=== PATIENT | male | born 1950 | race Caucasian/White ===

== ENCOUNTER 2017-03-30 09:11 | Outpatient (RCR) | payer MEDICARE ==
[~2017-03-30 09:11] MED LIST: ACID REFLUX MED; B/P MEDICATION; CELE200C PO; CHOLESTEROL MED; METH-313 PO
[2017-03-30 10:06] LABS: BASOPHILS # (AUTO) 0.1 10^3/uL (0.0-0.1); BASOPHILS % (AUTO) 1 % (0-10); EOSINOPHILS # (AUTO) 0.7 10^3/uL (0.0-0.3); EOSINOPHILS % (AUTO) 6 % (0-10); LYMPHOCYTES # (AUTO) 3.4 X 10^3 (1.0-4.0); LYMPHOCYTES % (AUTO) 26 % (12-44); MEAN CORPUSCULAR HEMOGLOBIN 31 PG (25-34); MEAN CORPUSCULAR HGB CONC 33 G/DL (32-36); MEAN CORPUSCULAR VOLUME 93 FL (80-99); MEAN PLATELET VOLUME 12.6 FL (7.4-10.4); MONOCYTES # (AUTO) 1.7 X 10^3 (0.0-1.0); MONOCYTES % (AUTO) 12 % (0-12); NEUTROPHILS # (AUTO) 7.6 X 10^3 (1.8-7.8); NEUTROPHILS % (AUTO) 56 % (42-75); PLATELET COUNT 173 10^3/uL (130-400); RED BLOOD COUNT 4.85 10^6/uL (4.35-5.85); RED CELL DISTRIBUTION WIDTH 13.6 % (10.0-14.5); WHITE BLOOD COUNT 13.5 10^3/uL (4.3-11.0)
[2017-03-30 10:25] LABS: ALBUMIN 3.9 G/DL (3.2-4.5); BILIRUBIN,TOTAL 0.6 MG/DL (0.1-1.0); CALCIUM 9.3 MG/DL (8.5-10.1); CREATININE SERUM 2.87 MG/DL (0.60-1.30); POTASSIUM 5.4 MMOL/L (3.6-5.0); TOTAL PROTEIN 6.4 G/DL (6.4-8.2)
== END 2017-06-28 | disposition home or self-care (01) ==
LOC: ONC 09:11
PROVIDERS: ATTEND Internal Medicine Hematology & Oncology
DX: D72.829 Elevated white blood cell count, unspecified (principal); N18.9 Chronic kidney disease, unspecified; E66.9 Obesity, unspecified; E11.9 Type 2 diabetes mellitus without complications; F32.9 Major depressive disorder, single episode, unspecified; E78.5 Hyperlipidemia, unspecified; M10.9 Gout, unspecified
CPT/HCPCS: 36415; 80053; 81270; 85025; 99214

== ENCOUNTER 2017-12-10 08:26 | Emergency (ER) | payer MEDICARE | END 2017-12-10 08:37 | disposition left against medical advice (07) | LOC: EDUNIT# 08:26 → ER 08:29 | DX: R03.0 Elevated blood-pressure reading, without diagnosis of hypertension (principal) ==

== ENCOUNTER 2017-12-13 14:50 | Emergency (ER) | payer MEDICARE ==
[~2017-12-13] VITALS: Ht 177.8 cm; Wt 139.7 kg
--- OUTSIDE RECORDS SUMMARY | 2017-12-13 14:54 | XMS REPORT ---
Author Author JENNI ARZOLA [facility] Address [address] [place] [address] Care Team Providers Care Chemical Waste Management Technician Name Role Phone JENNI ARZOLA Unavailable PROBLEMS Type Condition ICD9-CM Code DUH90-AF Code Onset Dates Condition Status SNOMED Code Problem Edema R60.9 Active 161786640 Problem GERD (gastroesophageal reflux disease) K21.9 Active 140457877 Problem Hypercholesterolemia E78.0 Active 02317395 Assessment Snoring R06.83 Jun, Active 31639931 Problem History of vitamin D deficiency Z86.39 Active 107185830 Problem Chronic kidney disease, stage 3 (moderate) N18.3 Active 937027314 Problem Gout M10.9 Active 72294219 Problem Obesity E66.9 Active 583602313 Problem Kidney disease N28.9 Active 66371395 Problem HTN (hypertension) I10 Active 67762927 Problem Wheezing R06.2 Active 20129255 ALLERGIES Substance Reaction Event Type Date Status Benicar Hct makes him cough Drug Allergy Jun, Active Lisinopril 20 Mg Tablet makes him feel funny Non Drug Allergy Jun, Active SOCIAL HISTORY No smoking Hx information available PLAN OF CARE VITAL SIGNS Height 70 in 2016-07-01 Weight 308.6 lbs 2016-07-01 Heart Rate 80 bpm 2016-07-01 Respiratory Rate 18 2016-07-01 BMI 44.27 kg/m2 2016-07-01 Blood pressure systolic 174 mmHg 2016-07-01 Blood pressure diastolic 92 mmHg 2016-07-01 MEDICATIONS Medication Instructions Dosage Frequency Start Date End Date Duration Status Amlodipine Besylate 10 MG Orally Once a day 1 tablet 24h Active HydrALAZINE HCl 25 MG Orally Twice a day 1 tablet 12h Active Carvedilol 12.5 MG Orally 2 times a day 1 tablet 12h Active Accupril 20 mg Orally Once a day 1 tablet 24h Jun, Active Metoprolol Succinate ER 100 MG Orally 2 times a day 1 tablet 12h Active RESULTS No Results PROCEDURES Procedure Date Ordered Related Diagnosis Body Site [facility] VISIT ESTABLISHED PATIENT Jul 01, 2016 Office Visit, Est Pt., Level 3 Jul 01, 2016 IMMUNIZATIONS No Known Immunizations
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
[2017-12-13] MEDS ORDERED: AMLO10TA4 PO (15:48)
--- NOTE | 2017-12-13 15:48 | ED General ---
General Chief Complaint: General Problems/Pain Stated Complaint: LOWER BACK PAIN/RINGING IN L EAR Nursing Triage Note: Pt presents to ED with multiple complaints. L ear ringing, lower back pain that is due to a BP medication he was taking, right groin pain, and HTN. Nursing Sepsis Screen: No Definite Risk Source of Information: Patient Exam Limitations: No Limitations History of Present Illness Date Seen by Provider: Dec 13, 2017 Time Seen by Provider: 15:26 Initial Comments Patient presents with multiple seemingly unrelated complaints. He complains of left ear tinnitus and uncontrolled hypertension. He was previously on hydrochlorothiazide which she believed was causing several adverse reactions. He discontinued hydrochlorothiazide. He still takes metoprolol. He is a fairly poor historian about his medications but I believe these are the medications he is talking about from description. He also complains of slipping on the ice resulting in his legs spreading in a lateral direction. This resulted in a "right pulled groin muscle" and right lower back pain he would like assessed. The musculoskeletal symptoms seem to be improving. Allergies and Home Medications Allergies Coded Allergies: No Known Drug Allergies (Unverified , 11/27/13) Home Medications Amlodipine Besylate 10 Mg Tablet, 10 MG PO DAILY, #30 Prescribed by: GT MCLEAN on 12/13/17 1548 Celecoxib 200 Mg Capsule, 200 MG PO UD PRN for PAIN, #30 Ref 0 Prescribed by: ROXANN MCKENZIE on 09/22/16 1743 Methocarbamol 750 Mg Tablet, 1,500 MG PO UD PRN for muscle spasms, #40 Ref 0 Prescribed by: ROXANN MCKENZIE on 09/22/16 1743 [Acid Reflux Med] , (Reported) [B/P Medication] , (Reported) [Cholesterol Med] , (Reported) Constitutional: no symptoms reported EENTM: see HPI Respiratory: no symptoms reported Cardiovascular: see HPI Gastrointestinal: no symptoms reported Genitourinary: no symptoms reported Musculoskeletal: see HPI Skin: no symptoms reported Psychiatric/Neurological: See HPI Hematologic/Lymphatic: No Symptoms Reported Immunological/Allergic: no symptoms reported Past Vvgppvk-Srysai-Dlynqx Hx Patient Social History Alcohol Use: Denies Use Recreational Drug Use: No Smoking Status: Never a Smoker 2nd Hand Smoke Exposure: No Recent Foreign Travel: No Contact w/Someone Who Travel: No Recent Infectious Disease Expo: No Recent Hopitalizations: No Physical Abuse: No Sexual Abuse: No Mistreated: No Fear: No Immunizations Up To Date Tetanus Booster (TDap): Unknown Seasonal Allergies Seasonal Allergies: No Surgeries History of Surgeries: No Respiratory History of Respiratory Disorde: No Cardiovascular History of Cardiac Disorders: Yes Cardiac Disorders: Hypertension Neurological History of Neurological Disord: No Genitourinary History of Genitourinary Disor: No Gastrointestinal History of Gastrointestinal Di: Yes Gastrointestinal Disorders: Gastroesophageal Reflux Musculoskeletal History of Musculoskeletal Dis: No Endocrine History of Endocrine Disorders: Yes (obesity) HEENT History of HEENT Disorders: Yes HEENT Disorders: Tinnitis Cancer History of Cancer: No Psychosocial History of Psychiatric Problem: No Suicide Risk Score: 1 Integumentary History of Skin or Integumenta: No Blood Transfusions History of Blood Disorders: No Physical Exam Vital Signs Vital Sign - Last 12Hours 12/13/17 14:57 Temp 98.8 Pulse 70 Resp 18 B/P (MAP) 193/108 (136) Pulse Ox 97 O2 Delivery Room Air Capillary Refill : Less Than 3 Seconds General Appearance: No Apparent Distress, WD/WN, Obese HEENT: PERRL/EOMI, TMs Normal, Normal ENT Inspection Neck: Normal Inspection Respiratory: Lungs Clear, Normal Breath Sounds, No Accessory Muscle Use, No Respiratory Distress Cardiovascular: Regular Rate, Rhythm, No Edema, No Murmur Gastrointestinal: Normal Bowel Sounds, Non Tender, Soft, Distended (centrally obese) Genital/Rectal: Normal Genital Exam, Other (no evidence of inguinal hernia) Back: Normal Inspection, Other (slight tenderness over the left paraspinous muscles) Extremity: Normal Inspection, Non Tender Neurologic/Psychiatric: Alert, Oriented x3, No Motor/Sensory Deficits, Normal Mood/Affect, dock hand II-XII Norm as Tested Skin: Normal Color, Warm/Dry Progress/Results/Core Measures Suspected Sepsis Recent Fever Within 48 Hours: No Infection Criteria Present: None New/Unexplained Altered Menta: No Sepsis Screen: No Definite Risk Sepsis Diagnosis: SIRS Temperature:98.8 Pulse: 70 Respiratory Rate: 18 Blood Pressure 193 /108 Mean: 136 Results/Orders Vital Signs/I&O Capillary Refill : Less Than 3 Seconds Blood Pressure Mean: 136 Progress Note : Progress Note I suggested changing hydrochlorothiazide to Norvasc and following up in 1-2 weeks with his primary care provider for further evaluation of hypertension. We discussed lifestyle modifications to help with blood pressure control. See discharge instructions. Departure Impression Impression: Primary Impression: Hypertension Qualified Codes: I10 - Essential (primary) hypertension Additional Impressions: Tinnitus Qualified Codes: H93.12 - Tinnitus, left ear Lower back pain Qualified Codes: M54.5 - Low back pain Right groin pain Disposition: 01 HOME, SELF-CARE Condition: Stable Departure-Patient Inst. Decision time for Depature: 15:40 Referrals: NEELIMA BLEVINS DO (PCP/Family) Primary Care Physician Patient Instructions: High Blood Pressure (DC), Tinnitus (Ringing in the Ears) Add. Discharge Instructions: You may stop your hydrochlorothiazide (HCTZ). Start Norvasc (amlodipine) as prescribed. Follow-up with your primary care provider in1-2 weeks for a blood pressure check and medication review. You may take Aleve (naproxen) up to 500 mg twice daily for your back pain. Add Tylenol (acetaminophen) up to 1000 mg every 6 hours as needed for additional pain relief. Eat a low salt diet, exercise, and work on weight reduction to help with blood pressure. Return to care if symptoms worsen. Also return to care if ringing in your ears does not improve after changing blood pressure medications. All discharge instructions reviewed with patient and/or family. Voiced understanding. Scripts Amlodipine Besylate (Norvasc) 10 Mg Tablet 10 MG PO DAILY, #30 TAB Prov: GT TALAMANTES MD 12/13/17 Copy Copies To 1: NEELIMA BLEVINS JOSHUA T MD Dec 13, 2017 15:48
[2017-12-13 15:56] VITALS: BP 163/89
== END 2017-12-13 15:57 | disposition home or self-care (01) ==
LOC: EDUNIT# 14:50 → ER 14:51
DX: H93.12 Tinnitus, left ear (principal); M54.5 Low back pain; I10 Essential (primary) hypertension; R10.9 Unspecified abdominal pain; K21.9 Gastro-esophageal reflux disease without esophagitis
CPT/HCPCS: 99281

== ENCOUNTER → 2018-06-07 | Outpatient (CLI) | payer MEDICARE ==
[~2018-06-07] MED LIST changes: +AMLO10TA4 PO
--- NOTE | 2018-06-07 09:45 | Diagnostic Imaging Report ---
PROCEDURE: US Renal Bilateral. TECHNIQUE: Multiple real-time grayscale images were obtained over the kidneys in various projections bilaterally. INDICATION: Chronic kidney disease. FINDINGS: Right kidney measures 10.7 x 4.8 x 6.8 cm and the left kidney measures 10.8 x 5.5 x 4.8 cm. Cortical thickness and echogenicity is normal. There is an area of hypoechogenicity in the medial portion of the right kidney measuring 1.8 x 1.6 x 2.3 cm. No calculi or hydronephrosis is seen. The left kidney is unremarkable. Bladder is unremarkable. IMPRESSION: Questionable hypoechoic mass in the medial portion of the right kidney. CT with and without intravenous contrast would be useful for further evaluation to rule out a solid renal mass. No other abnormalities are seen. Dictated by: Dictated on workstation # [id number]
--- NOTE | 2018-06-07 09:45 | Diagnostic Imaging Report ---
INDICATION: Chronic kidney disease. FINDINGS: Imaging of the urinary bladder was performed. The prevoid bladder volume is 158 mL. The postvoid bladder volume is 12 mL. No bladder wall thickening or mass is detected. IMPRESSION: Small post void residual bladder volume. . Dictated by: Dictated on workstation # [id number]
== END ==
LOC: RAD 08:19
PROVIDERS: ATTEND Internal Medicine Nephrology
DX: I13.10 Hypertensive heart and chronic kidney disease without heart failure, with stage 1 through stage 4 chronic kidney disease, or unspecified chronic kidney disease (principal); N18.4 Chronic kidney disease, stage 4 (severe); E55.9 Vitamin D deficiency, unspecified; N25.81 Secondary hyperparathyroidism of renal origin; E78.5 Hyperlipidemia, unspecified; E87.5 Hyperkalemia; M10.9 Gout, unspecified; D72.829 Elevated white blood cell count, unspecified; N40.0 Benign prostatic hyperplasia without lower urinary tract symptoms
CPT/HCPCS: 76770; 76857

== ENCOUNTER → 2018-07-22 | Outpatient (CLI) | payer MEDICARE ==
[2018-07-22 07:06] LABS: MEAN PLATELET VOLUME 11.7 FL (7.4-10.4); RED BLOOD COUNT 4.54 10^6/uL (4.35-5.85); RED CELL DISTRIBUTION WIDTH 12.9 % (10.0-14.5); WHITE BLOOD COUNT 11.5 10^3/uL (4.3-11.0)
[2018-07-22 07:22] LABS: ALBUMIN 3.9 GM/DL (3.2-4.5); CALCIUM 9.5 MG/DL (8.5-10.1); CREATININE SERUM 3.33 MG/DL (0.60-1.30); PHOSPHORUS 3.6 MG/DL (2.3-4.7); POTASSIUM 4.6 MMOL/L (3.6-5.0); URIC ACID 8.9 MG/DL (2.6-7.2)
== END ==
LOC: LAB 06:38
PROVIDERS: ATTEND Internal Medicine Nephrology
DX: E87.2 Acidosis (principal); E55.9 Vitamin D deficiency, unspecified; N25.81 Secondary hyperparathyroidism of renal origin; E78.5 Hyperlipidemia, unspecified; E87.5 Hyperkalemia; I13.10 Hypertensive heart and chronic kidney disease without heart failure, with stage 1 through stage 4 chronic kidney disease, or unspecified chronic kidney disease; R73.01 Impaired fasting glucose; R80.9 Proteinuria, unspecified; N18.3 Chronic kidney disease, stage 3 (moderate); Z91.14 Patient's other noncompliance with medication regimen; M10.9 Gout, unspecified; D72.829 Elevated white blood cell count, unspecified; N18.4 Chronic kidney disease, stage 4 (severe); N40.0 Benign prostatic hyperplasia without lower urinary tract symptoms
CPT/HCPCS: 36415; 80069; 82570; 84156; 84550; 85027

== ENCOUNTER → 2018-08-20 | Outpatient (CLI) | payer MEDICARE ==
[2018-08-20 06:53] LABS: BILIRUBIN,URINE NEGATIVE (NEGATIVE); CLARITY,URINE SLIGHTLY CLOUDY; COLOR,URINE YELLOW; GLUCOSE, URINE (UA) 1+ (NEGATIVE); KETONES,URINE NEGATIVE (NEGATIVE); LEUKOCYTE ESTERASE ,URINE NEGATIVE (NEGATIVE); NITRITE,URINE NEGATIVE (NEGATIVE); PH,URINE 6 (5-9); PROTEIN,URINE 4+ (NEGATIVE); UROBILINOGEN,URINE NORMAL (NORMAL)
[2018-08-20 06:57] LABS: HEMOGLOBIN 13.7 G/DL (13.3-17.7); RED BLOOD COUNT 4.5 10^6/uL (4.35-5.85); RED CELL DISTRIBUTION WIDTH 13.1 % (10.0-14.5)
[2018-08-20 07:02] LABS: BACTERIA,URINE NEGATIVE /HPF; RBC,URINE RARE /HPF; WBC,URINE RARE /HPF
[2018-08-20 07:13] LABS: ALBUMIN 3.9 GM/DL (3.2-4.5); CALCIUM 9.1 MG/DL (8.5-10.1); CREATININE SERUM 3.64 MG/DL (0.60-1.30); PHOSPHORUS 3.9 MG/DL (2.3-4.7); POTASSIUM 4.9 MMOL/L (3.6-5.0); URIC ACID 9.7 MG/DL (2.6-7.2)
== END ==
LOC: LAB 06:33
PROVIDERS: ATTEND Internal Medicine Nephrology
DX: E87.2 Acidosis (principal); E55.9 Vitamin D deficiency, unspecified; N25.81 Secondary hyperparathyroidism of renal origin; E78.5 Hyperlipidemia, unspecified; E87.5 Hyperkalemia; I12.9 Hypertensive chronic kidney disease with stage 1 through stage 4 chronic kidney disease, or unspecified chronic kidney disease; N18.4 Chronic kidney disease, stage 4 (severe); M10.9 Gout, unspecified; E79.0 Hyperuricemia without signs of inflammatory arthritis and tophaceous disease; R80.8 Other proteinuria; N40.0 Benign prostatic hyperplasia without lower urinary tract symptoms; Z91.14 Patient's other noncompliance with medication regimen
CPT/HCPCS: 36415; 80069; 81000; 82570; 84156; 84550; 85027

== ENCOUNTER → 2018-11-08 | Outpatient (CLI) | payer MEDICARE ==
[2018-11-08 13:24] LABS: HEMOGLOBIN 15.1 G/DL (13.3-17.7); MEAN PLATELET VOLUME 11.4 FL (7.4-10.4); RED BLOOD COUNT 4.92 10^6/uL (4.35-5.85); RED CELL DISTRIBUTION WIDTH 13.3 % (10.0-14.5); WHITE BLOOD COUNT 13.1 10^3/uL (4.3-11.0)
[2018-11-08 13:39] LABS: BACTERIA,URINE NEGATIVE /HPF; BILIRUBIN,URINE NEGATIVE (NEGATIVE); CLARITY,URINE CLEAR; COLOR,URINE YELLOW; GLUCOSE, URINE (UA) 1+ (NEGATIVE); GRANULAR CASTS,URINE RARE /LPF; HYALINE CASTS, URINE 0-2 /LPF; KETONES,URINE NEGATIVE (NEGATIVE); LEUKOCYTE ESTERASE ,URINE NEGATIVE (NEGATIVE); NITRITE,URINE NEGATIVE (NEGATIVE); PH,URINE 6 (5-9); PROTEIN,URINE 4+ (NEGATIVE); SQUAMOUS EPITHELIAL CELL,UR 0-2 /HPF; UROBILINOGEN,URINE NORMAL (NORMAL)
[2018-11-08 13:46] LABS: CALCIUM 9.4 MG/DL (8.5-10.1); CREATININE SERUM 3.16 MG/DL (0.60-1.30); PHOSPHORUS 3.1 MG/DL (2.3-4.7); POTASSIUM 4.4 MMOL/L (3.6-5.0); URIC ACID 8.4 MG/DL (2.6-7.2)
== END ==
LOC: LAB 12:44
PROVIDERS: ATTEND Internal Medicine Nephrology
DX: E55.9 Vitamin D deficiency, unspecified (principal); I12.9 Hypertensive chronic kidney disease with stage 1 through stage 4 chronic kidney disease, or unspecified chronic kidney disease; N18.4 Chronic kidney disease, stage 4 (severe); E87.5 Hyperkalemia; N25.81 Secondary hyperparathyroidism of renal origin; E78.5 Hyperlipidemia, unspecified; E87.2 Acidosis; Z91.14 Patient's other noncompliance with medication regimen; E79.0 Hyperuricemia without signs of inflammatory arthritis and tophaceous disease; D72.829 Elevated white blood cell count, unspecified; R80.8 Other proteinuria; N40.0 Benign prostatic hyperplasia without lower urinary tract symptoms
CPT/HCPCS: 36415; 80069; 81000; 82306; 82570; 83970; 84156; 84550; 85027

== ENCOUNTER → 2019-05-28 | Outpatient (CLI) | payer MEDICARE ==
[2019-05-28 10:09] LABS: HEMOGLOBIN 14.7 G/DL (13.3-17.7); MEAN PLATELET VOLUME 11.8 FL (7.4-10.4); RED CELL DISTRIBUTION WIDTH 13.3 % (10.0-14.5); WHITE BLOOD COUNT 11.5 10^3/uL (4.3-11.0)
[2019-05-28 10:27] LABS: BILIRUBIN,URINE NEGATIVE (NEGATIVE); CLARITY,URINE CLEAR; COLOR,URINE YELLOW; GLUCOSE, URINE (UA) 2+ (NEGATIVE); KETONES,URINE NEGATIVE (NEGATIVE); LEUKOCYTE ESTERASE ,URINE NEGATIVE (NEGATIVE); NITRITE,URINE NEGATIVE (NEGATIVE); PH,URINE 6 (5-9); PROTEIN,URINE 4+ (NEGATIVE); UROBILINOGEN,URINE NORMAL (NORMAL)
[2019-05-28 10:35] LABS: CALCIUM 9.6 MG/DL (8.5-10.1); CREATININE SERUM 4.39 MG/DL (0.60-1.30); PHOSPHORUS 3.9 MG/DL (2.3-4.7); POTASSIUM 4.7 MMOL/L (3.6-5.0)
[2019-05-28 10:56] LABS: BACTERIA,URINE TRACE /HPF; WBC,URINE RARE /HPF
== END ==
LOC: LAB 09:45
PROVIDERS: ATTEND Internal Medicine Nephrology
DX: E87.2 Acidosis (principal); E55.9 Vitamin D deficiency, unspecified; N25.81 Secondary hyperparathyroidism of renal origin; E78.5 Hyperlipidemia, unspecified; E87.5 Hyperkalemia; I12.9 Hypertensive chronic kidney disease with stage 1 through stage 4 chronic kidney disease, or unspecified chronic kidney disease; N18.4 Chronic kidney disease, stage 4 (severe); M10.9 Gout, unspecified; E79.0 Hyperuricemia without signs of inflammatory arthritis and tophaceous disease; D72.829 Elevated white blood cell count, unspecified; N40.0 Benign prostatic hyperplasia without lower urinary tract symptoms; Z91.14 Patient's other noncompliance with medication regimen
CPT/HCPCS: 36415; 80069; 81000; 82306; 82570; 83970; 84156; 85027

== ENCOUNTER → 2019-06-03 | Outpatient (CLI) | payer MEDICARE ==
[2019-06-03 07:43] LABS: ALBUMIN 3.9 GM/DL (3.2-4.5); CALCIUM 9.3 MG/DL (8.5-10.1); CREATININE SERUM 4.7 MG/DL (0.60-1.30); POTASSIUM 4.6 MMOL/L (3.6-5.0)
== END ==
LOC: LAB 06:51
PROVIDERS: ATTEND Internal Medicine Nephrology
DX: E87.2 Acidosis (principal); E55.9 Vitamin D deficiency, unspecified; N25.81 Secondary hyperparathyroidism of renal origin; E78.5 Hyperlipidemia, unspecified; E87.5 Hyperkalemia; I12.9 Hypertensive chronic kidney disease with stage 1 through stage 4 chronic kidney disease, or unspecified chronic kidney disease; E79.0 Hyperuricemia without signs of inflammatory arthritis and tophaceous disease; D72.829 Elevated white blood cell count, unspecified; N18.4 Chronic kidney disease, stage 4 (severe); N40.0 Benign prostatic hyperplasia without lower urinary tract symptoms; Z91.14 Patient's other noncompliance with medication regimen
CPT/HCPCS: 36415; 80069

== ENCOUNTER → 2020-01-22 | Outpatient (CLI) | payer MEDICARE ==
[2020-01-22 11:14] LABS: HEMOGLOBIN 13.2 G/DL (13.3-17.7); MEAN PLATELET VOLUME 12.3 FL (7.4-10.4); RED CELL DISTRIBUTION WIDTH 14.9 % (10.0-14.5); WHITE BLOOD COUNT 12.2 10^3/uL (4.3-11.0)
[2020-01-22 11:17] LABS: BILIRUBIN,URINE NEGATIVE (NEGATIVE); CLARITY,URINE CLEAR; COLOR,URINE YELLOW; GLUCOSE, URINE (UA) TRACE (NEGATIVE); KETONES,URINE NEGATIVE (NEGATIVE); LEUKOCYTE ESTERASE ,URINE NEGATIVE (NEGATIVE); NITRITE,URINE NEGATIVE (NEGATIVE); PH,URINE 5.5 (5-9); PROTEIN,URINE 3+ (NEGATIVE)
[2020-01-22 11:36] LABS: BACTERIA,URINE NEGATIVE /HPF; SQUAMOUS EPITHELIAL CELL,UR RARE /HPF; WBC,URINE RARE /HPF
[2020-01-22 11:49] LABS: ALBUMIN 4.2 GM/DL (3.2-4.5); CALCIUM 8.8 MG/DL (8.5-10.1); CREATININE SERUM 5.11 MG/DL (0.60-1.30); PHOSPHORUS 5.5 MG/DL (2.3-4.7); POTASSIUM 5.3 MMOL/L (3.6-5.0); URIC ACID 8.1 MG/DL (2.6-7.2)
== END ==
LOC: LAB 10:44
PROVIDERS: ATTEND Internal Medicine Nephrology
DX: I12.9 Hypertensive chronic kidney disease with stage 1 through stage 4 chronic kidney disease, or unspecified chronic kidney disease (principal); E87.2 Acidosis; E55.9 Vitamin D deficiency, unspecified; N25.81 Secondary hyperparathyroidism of renal origin; E78.5 Hyperlipidemia, unspecified; E87.5 Hyperkalemia; M10.9 Gout, unspecified; D72.829 Elevated white blood cell count, unspecified; N18.4 Chronic kidney disease, stage 4 (severe); N40.0 Benign prostatic hyperplasia without lower urinary tract symptoms; Z91.14 Patient's other noncompliance with medication regimen
CPT/HCPCS: 36415; 80069; 81000; 82306; 82330; 82570; 83970; 84156; 84550; 85027

== ENCOUNTER → 2020-03-19 | Outpatient (CLI) | payer MEDICARE ==
[2020-03-19 06:44] LABS: BASOPHILS # (AUTO) 0.1 10^3/uL (0.0-0.1); BASOPHILS % (AUTO) 0 % (0-10); EOSINOPHILS # (AUTO) 0.8 10^3/uL (0.0-0.3); EOSINOPHILS % (AUTO) 7 % (0-10); HEMATOCRIT 40 % (40-54); HEMOGLOBIN 12.9 G/DL (13.3-17.7); LYMPHOCYTES # (AUTO) 3.1 X 10^3 (1.0-4.0); LYMPHOCYTES % (AUTO) 28 % (12-44); MEAN CORPUSCULAR HEMOGLOBIN 30 PG (25-34); MEAN CORPUSCULAR HGB CONC 32 G/DL (32-36); MEAN CORPUSCULAR VOLUME 92 FL (80-99); MEAN PLATELET VOLUME 12.1 FL (7.4-10.4); MONOCYTES # (AUTO) 1.1 X 10^3 (0.0-1.0); MONOCYTES % (AUTO) 10 % (0-12); NEUTROPHILS # (AUTO) 6.1 X 10^3 (1.8-7.8); NEUTROPHILS % (AUTO) 55 % (42-75); PLATELET COUNT 174 10^3/uL (130-400); RED CELL DISTRIBUTION WIDTH 14.4 % (10.0-14.5); WHITE BLOOD COUNT 11.1 10^3/uL (4.3-11.0)
[2020-03-19 06:47] LABS: BILIRUBIN,URINE NEGATIVE (NEGATIVE); CLARITY,URINE CLEAR; COLOR,URINE YELLOW; GLUCOSE, URINE (UA) TRACE (NEGATIVE); KETONES,URINE NEGATIVE (NEGATIVE); LEUKOCYTE ESTERASE ,URINE NEGATIVE (NEGATIVE); NITRITE,URINE NEGATIVE (NEGATIVE); PROTEIN,URINE 3+ (NEGATIVE)
[2020-03-19 06:58] LABS: BACTERIA,URINE TRACE /HPF; HYALINE CASTS, URINE RARE /LPF; SQUAMOUS EPITHELIAL CELL,UR RARE /HPF
[2020-03-19 06:59] LABS: ALBUMIN 4.1 GM/DL (3.2-4.5); CALCIUM 8.8 MG/DL (8.5-10.1); CREATININE SERUM 5.47 MG/DL (0.60-1.30); PHOSPHORUS 4.7 MG/DL (2.3-4.7); POTASSIUM 4.9 MMOL/L (3.6-5.0)
== END ==
LOC: LAB 06:14
PROVIDERS: ATTEND Internal Medicine Nephrology
DX: E55.9 Vitamin D deficiency, unspecified (principal); E87.2 Acidosis; N25.81 Secondary hyperparathyroidism of renal origin; E78.5 Hyperlipidemia, unspecified; E87.5 Hyperkalemia; I13.2 Hypertensive heart and chronic kidney disease with heart failure and with stage 5 chronic kidney disease, or end stage renal disease; N18.5 Chronic kidney disease, stage 5; M10.9 Gout, unspecified; D72.829 Elevated white blood cell count, unspecified; R80.8 Other proteinuria; N40.0 Benign prostatic hyperplasia without lower urinary tract symptoms; Z91.14 Patient's other noncompliance with medication regimen
CPT/HCPCS: 36415; 80069; 81000; 82306; 82570; 83970; 84156; 85025; 87088

== ENCOUNTER 2020-04-09 14:22 | Emergency (ER) | payer OTHER, MEDICARE ==
[~2020-04-09] VITALS: Ht 177.8 cm; Wt 118.8 kg
[2020-04-09] MEDS ORDERED: meTOproloL SUCCINATE 50 MG (TOPROL XL) TAB PO SCH (14:45)
[2020-04-09 14:50] LABS: BASOPHILS # (AUTO) 0.1 10^3/uL (0.0-0.1); BASOPHILS % (AUTO) 0 % (0-10); EOSINOPHILS # (AUTO) 0.7 10^3/uL (0.0-0.3); EOSINOPHILS % (AUTO) 6 % (0-10); HEMATOCRIT 39 % (40-54); HEMOGLOBIN 12.6 G/DL (13.3-17.7); LYMPHOCYTES # (AUTO) 3.4 X 10^3 (1.0-4.0); LYMPHOCYTES % (AUTO) 29 % (12-44); MEAN CORPUSCULAR HEMOGLOBIN 30 PG (25-34); MEAN CORPUSCULAR HGB CONC 33 G/DL (32-36); MEAN CORPUSCULAR VOLUME 92 FL (80-99); MEAN PLATELET VOLUME 12.2 FL (7.4-10.4); MONOCYTES # (AUTO) 1.2 X 10^3 (0.0-1.0); MONOCYTES % (AUTO) 11 % (0-12); NEUTROPHILS # (AUTO) 6.1 X 10^3 (1.8-7.8); NEUTROPHILS % (AUTO) 53 % (42-75); PLATELET COUNT 166 10^3/uL (130-400); RED CELL DISTRIBUTION WIDTH 14.1 % (10.0-14.5); WHITE BLOOD COUNT 11.5 10^3/uL (4.3-11.0)
[2020-04-09 15:06] LABS: PROTHROMBIN TIME PATIENT 13.6 SEC (12.2-14.7)
[2020-04-09 15:08] LABS: CALCIUM 8.9 MG/DL (8.5-10.1)
[2020-04-09 15:09] LABS: TOTAL PROTEIN 6.7 GM/DL (6.4-8.2)
[2020-04-09 15:11] LABS: BILIRUBIN,TOTAL 0.4 MG/DL (0.1-1.0)
[2020-04-09 15:13] LABS: CREATININE SERUM 6.01 MG/DL (0.60-1.30)
[2020-04-09 15:15] LABS: MAGNESIUM 2.3 MG/DL (1.6-2.4)
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
[2020-04-09] MEDS ORDERED: hydrALAZINE (APESOLINE) 20 MG/ML VIAL IV ONE (16:15)
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
[2020-04-09 17:39] VITALS: BP 155/80
--- OUTSIDE RECORDS SUMMARY | 2020-04-09 18:35 | XMS REPORT ---
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 81 Active 93836264 Problem Other hyperlipidemia E78.4 Active 58195781 Problem Anxiety F41.9 Active 28868269 Problem Chronic kidney disease, stage 3 (moderate) N18.3 Active 678926363 Problem Kidney disease N28.9 Active 17292 001 Problem GERD (gastroesophageal reflux disease) K21.9 Active 418822487 Problem Hypercholesterolemia E78.0 Active 33683545 Problem History of vitamin D deficiency Z86.39 Active 503220583 Problem Obesity E66.9 Active 460405502 Problem Edema R60.9 Active 989551461 Problem HTN (hypertension) I10 Active 3 [id number] ALLERGIES No Information ENCOUNTERS Encounter Location Date Diagnosis [facility] [address] [facility] [id number] [address] [place] [phone] March, [facility] [address] [facility] [id number] [address] [place] [id number] Feb, Chronic kidney disease, stag e IV (severe) N18.4 [facility] [address] [facility] [id number] [address] [place] [id number] Feb, [facility] [address] [place] [id number] [address] [place] [phone] Jan, Chronic kidney disease, stag e IV (severe) N18.4 [facility] [address] [facility] [id number] [address] [place] [phone] Jan, Chronic kidney disease, stag e IV (severe) N18.4 [facility] [address] [place] [id number] [place] [address] Jan, HTN (hypertension) I10 and C hronic kidney disease, stage 3 (moderate) N18.3 [place] [address] [place] [id number] [place] [address] Dec, [facility] [address] [place] [id number] [place] [address] Aug, [facility] [address] [address] Aug, [facility] [address] [address] Aug, Gout involving toe of left f oot, unspecified cause, unspecified chronicity M10.9 [facility] [address] [place] [id number] [address] [place] [phone] Jul, Chronic kidney disease, stag e 3 (moderate) N18.3 [facility] [address] [place] [id number] [address] [place] [address] Jul, Chronic kidney disease, stag e 3 (moderate) N18.3 [place] [id number] [place] [id number] [address] [place] [address] Jun, Hypercholesterolemia E78.0 [place] [address] [place] [id number] [place] [address] Jun, Hypercholesterolemia E78.0 [facility] [address] [address] May, [facility] [address] [facility] [id number] [address] [place] [phone] Apr, Acute seasonal allergic rhin itis, unspecified trigger J30.2 [facility] [address] [facility] [id number] [address] [place] [address] Apr, [facility] [address] [facility] [id number] [address] [place] [phone] March, HTN (hypertension) I10 [place] [address] [facility] [id number] [address] [place] [phone] March, Pain in right shoulder M25.5 [address] [place] [address] [facility] [id number] [address] [place] [phone] March, Hypercholesterolemia E78.0 [facility] [address] [facility] [id number] [address] [place] [phone] Feb, Chronic kidney disease, stag e III (moderate) N18.3 [facility] [address] [facility] [id number] [address] [place] [address] Jan, Acute pain of right shoulder M25.511 and Muscle strain of right shoulder, initial encounter S46.911A [facility] [address] [place] [id number] [address] [place] [address] Jan, Anxiety F41.9 [place] [address] [place] [id number] [place] [address] Nov, Anxiety F41.9 and Chronic ki dney disease, stage 3 (moderate) N18.3 [place] [id number] [facility] [id number] [address] [place] [address] Oct, Chronic kidney disease, stag e 3 (moderate) N18.3 ; Gout M10.9 ; Acidosis E87.2 ; Other hyperlipidemia E78.4 ; 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 ; HTN (hypertension) I10 ; Patient's other noncompliance with medication regimen Z91.14 ; Hyperkalemia E87.5 ; Secondary hyperparathyroidism of renal origin N25.81 ; Persistent proteinuria R80.1 and Vitamin D deficiency E55.9 [place] [address] [address] Oct, Acidosis E87.2 ; Vitamin D d eficiency E55.9 ; Secondary hyperparathyroidism of renal origin N25.81 ; Other hyperlipidemia E78.4 ; Hyperkalemia E87.5 ; 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 ; Impaired fasting glucose R73.01 ; Persistent proteinuria R80.1 ; Chronic kidney disease, stage III (moderate) N18.3 ; Patient's other noncompliance with medication regimen Z91.14 and Gout, unspecified cause, unspecified chronicity, unspecified site M10.9 [place] [address] [address] Oct, [place] [address] [address] Oct, Chronic kidney disease, stag e 3 (moderate) N18.3 ; HTN (hypertension) I10 ; Persistent proteinuria R80.1 and Vitamin D deficiency E55.9 [place] [address] [address] Jul, Snoring R06.83 ; Obesity E66 .9 ; HTN (hypertension) I10 and Kidney disease N28.9 [facility] [address] [address] Jul, [facility] [address] [address] Jun, Snoring R06.83 and HTN (hype rtension) I10 [place] [address] [address] Jun, Chronic kidney disease, stag e 3 (moderate) N18.3 [place] [address] [address] Jun, Chronic kidney disease, stag e 3 (moderate) N18.3 [place] [address] [address] Jan, [place] [address] [address] Jan, Kidney disease N28.9 and Hyp ercholesterolemia E78.[address] [address] Jan, HTN (hypertension) I10 ; Gou t M10.9 and Kidney disease N28.[address] [address] Jan, Gout M10.9 and HTN (hyperten malgorzata) I10 [address] [address] Nov, Gout M10.9 ; HTN (hypertensi on) I10 and Obesity E66.9 [facility] [address] [address] Oct, Acute gout of right foot, un specified cause M10.[address] [address] Sep, [address] [address] Sep, Hyperpotassemia 276.7 ; Hype rtensive heart and chronic kidney disease, benign, without heart failure and with chronic kidney disease stage I through stage IV, or unspecified 404.10 ; Dyslipidemia 272.4 ; Vitamin D deficiency 268.9 ; Chronic kidney disease, stage 3 585.3 ; Elevated fasting blood sugar 790.21 ; Secondary hyperparathyroidism (of renal origin) 588.81 ; Proteinuria 791.0 and Acidosis 276.[address] [address] May, [place] [address] [place] [address] May, Hyperpotassemia 276.7 ; Hype rtensive heart and chronic kidney disease, benign, without heart failure and with chronic kidney disease stage I through stage IV, or unspecified 404.10 ; Dyslipidemia 272.4 ; Vitamin D deficiency 268.9 and Chronic kidney disease, stage 3 585.3 [facility] [address] [facility] [id number] [address] [place] [id number] Apr, Dental examination V72.2 [facility] [address] [place] [id number] [address] [place] [phone] March, Acidosis 276.2 ; Vitamin D d eficiency 268.9 ; Secondary hyperparathyroidism (of renal origin) 588.81 ; Dyslipidemia 272.4 ; Hyperpotassemia 276.7 ; Hypertensive heart and chronic kidney disease, benign, without heart failure and with chronic kidney disease stage I through stage IV, or unspecified 404.10 ; Elevated fasting blood sugar 790.21 ; Proteinuria 791.0 and Chronic kidney disease, stage 3 585.3 [facility] [address] [address] Feb, [facility] [address] [address] Feb, [facility] [address] [place] [id number] [address] [place] [phone] Jan, [facility] [address] [place] [id number] [address] [place] [address] Jan, [facility] [id number] [place] [address] Jan, [facility] [address] [address] Jan, [facility] [address] [place] [id number] [address] [place] [phone] Jan, [facility] [address] [place] [id number] [address] [place] [phone] Jan, [facility] [address] [id number] [address] [place] [address], [place] [address] Dec, 2014 [facility] [address] [id number] [address] [place] [address], [place] [address] Dec, 2014 [facility] [address] [id number] [address] [place] [address], [place] [address] Dec, 2014 [facility] [address] [id number] [address] [place] [address], [place] [address] Dec, 2014 [facility] [address] [id number] [address] [place] [address], [place] [address] Dec, 2014 [facility] [address] [id number] [address] [place] [address], [place] [address] Dec, 2014 [facility] [address] [id number] [address] [place] [address], [place] [address] Dec, [facility] [address] [id number] [address] [place] [address], [place] [address] Dec, [facility] [address] [id number] [address] [place] [address], [place] [address] Nov, [facility] [address] [id number] [address] [place] [address], [place] [address] Nov, [facility] [address] [id number] [address] [place] [address], [place] [address] Oct, [facility] [address] [id number] [address] [place] [address], [place] [address] Oct, [facility] [address] [id number] [address] [place] [address], [place] [address] Oct, [facility] [address] [id number] [address] [place] [address], [place] [address] Oct, [facility] [address] [id number] [address] [place] [address], [place] [address] Oct, [facility] [address] [id number] [facility] [place] [address] Jun, [facility] [address] [id number] [facility] [place] [address] Jun, [facility] [address] [id number] [facility] [place] [address] Jun, [facility] [address] [id number] [address] [place] [address], [place] [address] Jun, [facility] [address] [id number] [address] [place] [address], [place] [address] Apr, [facility] [address] [id number] [address] [place] [address], [place] [address] Apr, [facility] [address] [id number] [address] [place] [address], [place] [address] Apr, [facility] [address] [id number] [address] [place] [address], [place] [address] Apr, [facility] [address] [id number] [address] [place] [address], [place] [address] Apr, [facility] [address] [id number] [address] [place] [address], [place] [address] Apr, [facility] [address] [id number] [address] [place] [address], [place] [address] March, [facility] [address] [id number] [address] [place] [address], [place] [address] March, [facility] [address] [id number] [address] [place] [address], [place] [address] March, [facility] [address] [id number] [address] [place] [address], [place] [address] Jan, [facility] [address] [id number] [address] [place] [address], [place] [address] Jan, [facility] [address] [id number] [address] [place] [address], [place] [address] Jan, [facility] [address] [id number] [address] [place] [address], [place] [address] Jan, [facility] [address] [id number] [address] [place] [address], [place] [address] Dec, [facility] [address] [id number] [address] [place] [address], [place] [address] Dec, [facility] [address] [id number] [address] [place] [address], [place] [address] Dec, [facility] [address] [id number] [address] [place] [address], [place] [address] Dec, [facility] [address] [id number] [address] [place] [address], [place] [address] Oct, [facility] [address] [id number] [address] [place] [address] Oct, [facility] [address] [id number] [address] [place] [address] Sep, [facility] [address] [id number] [address] [place] [address] Sep, [facility] [address] [id number] [address] [place] [address] Sep, [facility] [address] [id number] [address] [place] [address] Sep, [facility] [address] [id number] [address] [place] [id number] Aug, 2013 [facility] [address] [id number] [address] [place] [id number] 14 Aug, 2013 [facility] [address] [id number] [address] [place] [address] 14 Aug, 2013 [facility] [address] [id number] [address] [place] [id number] 13 Aug, 2013 [facility] [address] [id number] [address] [place] [address], [place] [address] Aug, [facility] [address] [id number] [address] [place] [address], [place] [address] Aug, [facility] [address] [id number] [address] [place] [address], [place] [address] Aug, [facility] [address] [id number] [address] [place] [address], [place] [address] Aug, [facility] [address] [id number] [address] [place] [address], [place] [address] Jul, [facility] [address] [id number] [address] [place] [address], [place] [address] Jun, [facility] [address] [id number] [address] [place] [address], [place] [address] Jun, [facility] [address] [id number] [address] [place] [address], [place] [address] May, [facility] [address] [id number] [address] [place] [address], [place] [address] May, [facility] [address] [id number] [address] [place] [address], [place] [address] May, [facility] [address] [id number] [address] [place] [address], [place] [address] Apr, [facility] [address] [id number] [address] [place] [address], [place] [address] Apr, [facility] [address] [id number] [address] [place] [address], [place] [address] Apr, [facility] [address] [id number] [address] [place] [address], [place] [address] Apr, [facility] [address] [id number] [address] [place] [address], [place] [address] March, [facility] [address] [id number] [address] [place] [address], [place] [address] March, [facility] [address] [facility] [id number] [address] [place] [address] Feb, [facility] [address] [facility] [id number] [address] [place] [address] Jan, [facility] [address] [facility] [id number] [address] [place] [address] Dec, [facility] [address] [facility] [id number] [address] [place] [address] Dec, [facility] [address] [facility] [id number] [address] [place] [address] Dec, [facility] [address] [facility] [id number] [address] [place] [address] Dec, [facility] [address] [facility] [id number] [address] [place] [address] Dec, IMMUNIZATIONS No Known Immunizations SOCIAL HISTORY Never Assessed REASON FOR VISIT Lab (walk-in)--[facility] PLAN OF [facility] VITAL SIGNS MEDICATIONS Unknown Medications RESULTS Name Result Date Reference Range LIPID PANEL 2017-06-09 Cholesterol, Total 238 100-199 Triglycerides 212 0-149 HDL Cholesterol 35 >39 VLDL Cholesterol Anam 42 5-40 LDL Cholesterol Calc 161 0-99 Comment: CMP 2017-06-09 Glucose, Serum 106 65-99 BUN 29 8-27 Creatinine, Serum 2.52 0.76-1.27 eGFR If NonAfricn Am 26 >59 eGFR If Africn Am 30 >59 BUN/Creatinine Ratio 12 10-24 Sodium, Serum 138 134-144 Potassium, Serum 5.3 3.5-5.2 Chloride, Serum 98 96-106 Carbon Dioxide, Total 21 18-29 Calcium, Serum 9.3 8.6-10.2 Protein, Total, Serum 6.7 6.0-8.5 Albumin, Serum 4.5 3.6-4.8 Globulin, Total 2.2 1.5-4.5 A/G Ratio 2.0 1.2-2.2 Bilirubin, Total 0.4 0.0-1.2 Alkaline Phosphatase, S 68 39-117 AST (SGOT) 17 0-40 ALT (SGPT) 20 0-44 LIPID PANEL 2017-06-09 Cholesterol, Total 238 100-199 Triglycerides 212 0-149 HDL Cholesterol 35 >39 VLDL Cholesterol Anam 42 5-40 LDL Cholesterol Calc 161 0-99 Comment: CMP 2017-06-09 Glucose, Serum 106 65-99 BUN 29 8-27 Creatinine, Serum 2.52 0.76-1.27 eGFR If NonAfricn Am 26 >59 eGFR If Africn Am 30 >59 BUN/Creatinine Ratio 12 10-24 Sodium, Serum 138 134-144 Potassium, Serum 5.3 3.5-5.2 Chloride, Serum 98 96-106 Carbon Dioxide, Total 21 18-29 Calcium, Serum 9.3 8.6-10.2 Protein, Total, Serum 6.7 6.0-8.5 Albumin, Serum 4.5 3.6-4.8 Globulin, Total 2.2 1.5-4.5 A/G Ratio 2.0 1.2-2.2 Bilirubin, Total 0.4 0.0-1.2 Alkaline Phosphatase, S 68 39-117 AST (SGOT) 17 0-40 ALT (SGPT) 20 0-44 PROCEDURES Procedure Date Ordered Result Body Site [facility] Jun 09, 2017 VENIPUNCT, ROUTINE* Jun 09, 2017 INSTRUCTIONS MEDICATIONS ADMINISTERED No Known Medications MEDICAL (GENERAL) HISTORY Type Description Date Medical History HTN Medical History decreased kidney function Medical History gout Hospitalization History Infection
--- OUTSIDE RECORDS SUMMARY | 2020-04-09 18:35 | XMS REPORT ---
Author Author Yves ARZOLA Organization 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 81 Active 84466297 Problem Other hyperlipidemia E78.4 Active 45984543 Problem Anxiety F41.9 Active 78018950 Problem Chronic kidney disease, stage 3 (moderate) N18.3 Active 060047076 Problem Kidney disease N28.9 Active 88869 001 Problem GERD (gastroesophageal reflux disease) K21.9 Active 731351514 Problem Hypercholesterolemia E78.0 Active 07599997 Problem History of vitamin D deficiency Z86.39 Active 327137955 Problem Obesity E66.9 Active 048325390 Problem Edema R60.9 Active 400712852 Problem HTN (hypertension) I10 Active 3 5969111 ALLERGIES No Information ENCOUNTERS Encounter Location Date Diagnosis [facility] [address] [facility] [id number] [address] [place] [phone] March, [facility] [address] [facility] [id number] [address] [place] [address] Feb, Chronic kidney disease, stag e IV (severe) N18.4 [facility] [address] [facility] [id number] [address] [place] [address] Feb, [facility] [address] [place] [id number] [address] [place] [address] Jan, Chronic kidney disease, stag e IV (severe) N18.4 [facility] [address] [facility] [id number] [address] [place] [address] Jan, Chronic kidney disease, stag e IV (severe) N18.4 [facility] [address] [place] [id number] [place] [address] Jan, HTN (hypertension) I10 and C hronic kidney disease, stage 3 (moderate) N18.3 [place] [address] [place] [id number] [place] [address] Dec, [facility] [address] [place] [id number] [place] [address] Aug, [facility] [address] [phone] Aug, [facility] [address] [address] Aug, Gout involving toe of left f oot, unspecified cause, unspecified chronicity M10.9 [facility] [address] [place] [id number] [address] [place] [address] Jul, Chronic kidney disease, stag e 3 (moderate) N18.3 [facility] [address] [place] [id number] [address] [place] [address] Jul, Chronic kidney disease, stag e 3 (moderate) N18.3 [place] [address] [place] [id number] [address] [place] [address] Jun, Hypercholesterolemia E78.0 [place] [address] [place] [id number] [place] [address] Jun, Hypercholesterolemia E78.0 [facility] [address] [address] May, [facility] [address] [facility] [id number] [address] [place] [address] Apr, Acute seasonal allergic rhin itis, unspecified trigger J30.2 [facility] [address] [facility] [id number] [address] [place] [address] Apr, [facility] [address] [facility] [id number] [address] [place] [address] March, HTN (hypertension) I10 [place] [address] [facility] [id number] [address] [place] [address] March, Pain in right shoulder M25.5 [address] [place] [address] [facility] [id number] [address] [place] [address] March, Hypercholesterolemia E78.0 [facility] [address] [facility] [id number] [address] [place] [address] Feb, Chronic kidney disease, stag e III (moderate) N18.3 [facility] [address] [facility] [id number] [address] [place] [address] Jan, Acute pain of right shoulder M25.511 and Muscle strain of right shoulder, initial encounter S46.911A 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 ; HTN (hypertension) I10 ; Patient's other noncompliance with medication regimen Z91.14 ; Hyperkalemia E87.5 ; Secondary hyperparathyroidism of renal origin N25.81 ; Persistent proteinuria R80.1 and Vitamin D deficiency E55.9 [place] [address] [address] Oct, Acidosis E87.2 ; Vitamin D d [...] unspecified cause, unspecified chronicity, unspecified site M10.9 [place] [address] [address] Oct, [place] [address] [address] Oct, Chronic kidney disease, stag e 3 (moderate) N18.3 ; HTN (hypertension) I10 ; Persistent proteinuria R80.1 and Vitamin D deficiency E55.9 [place] [address] [address] Jul, Snoring R06.83 ; Obesity E66 .9 ; HTN (hypertension) I10 and Kidney disease N28.9 [facility] [address] [address] Jul, [facility] [address] [address] Jun, Snoring R06.83 and HTN (hype rtension) I10 [place] [address] [address] Jun, Chronic kidney disease, stag e 3 (moderate) N18.3 [place] [address] [address] Jun, Chronic kidney disease, stag e 3 (moderate) N18.3 [place] [address] [address] Jan, [place] [address] [address] Jan, Kidney disease N28.9 and Hyp ercholesterolemia E78.[address] [address] Jan, HTN (hypertension) I10 ; Gou t M10.9 and Kidney disease N28.[address] [address] Jan, Gout M10.9 and HTN (hyperten malgorzata) I10 [address] [address] Nov, Gout M10.9 ; HTN (hypertensi on) I10 and Obesity E66.9 [facility] [address] [address] Oct, Acute gout of right foot, un specified cause M10.[address] [address] Sep, [address] [address] Sep, Hyperpotassemia 276.7 ; Hype rtensive heart and chronic kidney disease, benign, without heart failure and with chronic kidney disease stage I through stage IV, or unspecified 404.10 ; Dyslipidemia 272.4 ; Vitamin D deficiency 268.9 ; Chronic kidney disease, stage 3 585.3 ; Elevated fasting blood sugar 790.21 ; Secondary hyperparathyroidism (of renal origin) 588.81 ; Proteinuria 791.0 and Acidosis 276.[address] [address] May, [place] [address] [place] [address] May, Hyperpotassemia 276.7 ; Hype rtensive heart and chronic kidney disease, benign, without heart failure and with chronic kidney disease stage I through stage IV, or unspecified 404.10 ; Dyslipidemia 272.4 ; Vitamin D deficiency 268.9 and Chronic kidney disease, stage 3 585.3 [facility] [address] [facility] [id number] [address] [place] [id number] Apr, Dental examination V72.2 [facility] [address] [place] [id number] [address] [place] [address] March, Acidosis 276.2 ; Vitamin D d eficiency 268.9 ; Secondary hyperparathyroidism (of renal origin) 588.81 ; Dyslipidemia 272.4 ; Hyperpotassemia 276.7 ; Hypertensive heart and chronic kidney disease, benign, without heart failure and with chronic kidney disease stage I through stage IV, or unspecified 404.10 ; Elevated fasting blood sugar 790.21 ; Proteinuria 791.0 and Chronic kidney disease, stage [address] [facility] [address] [address] Feb, [facility] [address] [address] Feb, [facility] [address] [place] [id number] [address] [place] [address] Jan, [facility] [address] [place] [id number] [address] [place] [address] Jan, [facility] [id number] [place] [address] Jan, [facility] [address] [address] Jan, [facility] [address] [place] [id number] [address] [place] [address] Jan, [facility] [address] [place] [id number] [address] [place] [address] Jan, [facility] [address] [id number] [address] [place] [address], [place] [address] Dec, 2014 [facility] [address] [id number] [address] [place] [address], [place] [address] Dec, 2014 [facility] [address] [id number] [address] [place] [address], [place] [address] Dec, 2014 [facility] [address] [id number] [address] [place] [address], [place] [address] Dec, 2014 [facility] [address] [id number] [address] [place] [address], [place] [address] Dec, 2014 [facility] [address] [id number] [address] [place] [address], [place] [address] Dec, 2014 [facility] [address] [id number] [address] [place] [address], [place] [address] Dec, [facility] [address] [id number] [address] [place] [address], [place] [address] Dec, [facility] [address] [id number] [address] [place] [address], [place] [address] Nov, [facility] [address] [id number] [address] [place] [address], [place] [address] Nov, [facility] [address] [id number] [address] [place] [address], [place] [address] Oct, [facility] [address] [id number] [address] [place] [address], [place] [address] Oct, [facility] [address] [id number] [address] [place] [address], [place] [address] Oct, [facility] [address] [id number] [address] [place] [address], [place] [address] Oct, [facility] [address] [id number] [address] [place] [address], [place] [address] Oct, [facility] [address] [id number] [facility] [place] [place] [address] Jun, [facility] [address] [id number] [facility] [place] [place] [address] Jun, [facility] [address] [id number] [facility] [place] [place] [address] Jun, [facility] [address] [id number] [address] [place] [address], [place] [address] Jun, [facility] [address] [id number] [address] [place] [address], [place] [address] Apr, [facility] [address] [id number] [address] [place] [address], [place] [address] Apr, [facility] [address] [id number] [address] [place] [address], [place] [address] Apr, [facility] [address] [id number] [address] [place] [address], [place] [address] Apr, [facility] [address] [id number] [address] [place] [address], [place] [address] Apr, [facility] [address] [id number] [address] [place] [address], [place] [address] Apr, [facility] [address] [id number] [address] [place] [address], [place] [address] March, [facility] [address] [id number] [address] [place] [address], [place] [address] March, [facility] [address] [id number] [address] [place] [address], [place] [address] March, [facility] [address] [id number] [address] [place] [address], [place] [address] Jan, [facility] [address] [id number] [address] [place] [address], [place] [address] Jan, [facility] [address] [id number] [address] [place] [address], [place] [address] Jan, [facility] [address] [id number] [address] [place] [address], [place] [address] Jan, [facility] [address] [id number] [address] [place] [address], [place] [address] Dec, [facility] [address] [id number] [address] [place] [address], [place] [address] Dec, [facility] [address] [id number] [address] [place] [address], [place] [address] Dec, [facility] [address] [id number] [address] [place] [address], [place] [address] Dec, [facility] [address] [id number] [address] [place] [address], [place] [address] Oct, [facility] [address] [id number] [address] [place] [address] Oct, [facility] [address] [id number] [address] [place] [address] Sep, [facility] [address] [id number] [address] [place] [phone] Sep, [facility] [address] [id number] [address] [place] [address] Sep, [facility] [address] [id number] [address] [place] [address] Sep, [facility] [address] [id number] [address] [place] [id number] 15 Aug, 2013 [facility] [address] [id number] [address] [place] [id number] 14 Aug, 2013 [facility] [address] [id number] [address] [place] [address] 14 Aug, 2013 [facility] [address] [id number] [address] [place] [phone] 13 Aug, 2013 [facility] [address] [id number] [address] [place] [address], [place] [address] Aug, [facility] [address] [id number] [address] [place] [address], [place] [address] Aug, [facility] [address] [id number] [address] [place] [address], [place] [address] Aug, [facility] [address] [id number] [address] [place] [address], [place] [address] Aug, [facility] [address] [id number] [address] [place] [address], [place] [address] Jul, [facility] [address] [id number] [address] [place] [address], [place] [address] Jun, [facility] [address] [id number] [address] [place] [address], [place] [address] Jun, [facility] [address] [id number] [address] [place] [address], [place] [address] May, [facility] [address] [id number] [address] [place] [address], [place] [address] May, [facility] [address] [id number] [address] [place] [address], [place] [address] May, [facility] [address] [id number] [address] [place] [address], [place] [address] Apr, [facility] [address] [id number] [address] [place] [address], [place] [address] Apr, [facility] [address] [id number] [address] [place] [address], [place] [address] Apr, [facility] [address] [id number] [address] [place] [address], [place] [address] Apr, [facility] [address] [id number] [address] [place] [address], [place] [address] March, [facility] [address] [id number] [address] [place] [address], [place] [address] March, [facility] [address] [facility] [id number] [address] [place] [id number] Feb, [facility] [address] [facility] [id number] [address] [place] [id number] Jan, [facility] [address] [facility] [id number] [address] [place] [id number] Dec, [facility] [address] [facility] [id number] [address] [place] [address] Dec, [facility] [address] [facility] [id number] [address] [place] [id number] Dec, [facility] [address] [facility] [id number] [address] [place] [id number] Dec, [facility] [address] [facility] [id number] [address] [place] [id number] Dec, IMMUNIZATIONS No Known Immunizations SOCIAL HISTORY Never Assessed REASON FOR VISIT Lab (walk-in) PLAN OF CARE Activity Details Pending Test PHOSPHORUS VITAL SIGNS MEDICATIONS Unknown Medications RESULTS Name Result Date Reference Range PTH (INTACT) 2017-07-14 PTH, Intact TNP Request Problem TNP URIC ACID, SERUM 2017-07-14 Uric Acid, Serum 8.5 3.7-8.6 UA W/ MICROSCOPY 2017-07-14 Specific Dequincy 1.026 1.005-1.030 pH 6.0 5.0-7.5 Urine-Color Yellow Yellow Appearance Clear Clear WBC Esterase Negative Negative Protein 3+ Negative/Trace Glucose Trace Negative Ketones Negative Negative Occult Blood Negative Negative Bilirubin Negative Negative Urobilinogen,Semi-Qn 0.2 0.2-1.0 Nitrite, Urine Negative Negative Microscopic Examination See below: WBC 0-5 0 - 5 RBC 0-2 0 - 2 Epithelial Cells (non renal) None seen 0 - 10 Mucus Threads Present Not Estab. Bacteria None seen None seen/Few CBC 2017-07-14 WBC 16.0 3.4-10.8 RBC 4.78 4.14-5.80 Hemoglobin 14.7 12.6-17.7 Hematocrit 44.7 37.5-51.0 MCV 94 79-97 MCH 30.8 26.6-33.0 MCHC 32.9 31.5-35.7 RDW 13.6 12.3-15.4 Platelets 210 150-379 Neutrophils 59 Lymphs 28 Monocytes 9 Eos 4 Basos 0 Neutrophils (Absolute) 9.3 1.4-7.0 Lymphs (Absolute) 4.5 0.7-3.1 Monocytes(Absolute) 1.4 0.1-0.9 Eos (Absolute) 0.7 0.0-0.4 Baso (Absolute) 0.0 0.0-0.2 Immature Granulocytes 0 Immature Grans (Abs) 0.0 0.0-0.1 VITAMIN D, 25-H 2017-07-14 Vitamin D, 25-Hydroxy 26.8 30.0-100.0 LIPID PANEL 2017-07-14 Cholesterol, Total 233 100-199 Triglycerides 208 0-149 HDL Cholesterol 37 >39 VLDL Cholesterol Anam 42 5-40 LDL Cholesterol Calc 154 0-99 RENAL PROFILE 2017-07-14 Glucose, Serum 95 65-99 BUN 36 8-27 Creatinine, Serum 2.58 0.76-1.27 eGFR If NonAfricn Am 25 >59 eGFR If Africn Am 29 >59 BUN/Creatinine Ratio 14 10-24 Sodium, Serum 140 134-144 Potassium, Serum 4.5 3.5-5.2 Chloride, Serum 101 96-106 Carbon Dioxide, Total 23 18-29 Calcium, Serum 9.4 8.6-10.2 Phosphorus, Serum 3.3 2.5-4.5 Albumin, Serum 4.1 3.6-4.8 PROCEDURES Procedure Date Ordered Result Body Site LAB [facility] Jul 14, 2017 VENIPUNCT, ROUTINE* Jul 14, 2017 INSTRUCTIONS MEDICATIONS ADMINISTERED No Known Medications MEDICAL (GENERAL) HISTORY Type Description Date Medical History HTN Medical History decreased kidney function Medical History gout Hospitalization History Infection
--- OUTSIDE RECORDS SUMMARY | 2020-04-09 18:35 | XMS REPORT ---
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 81 Active 03371398 Problem Other hyperlipidemia E78.4 Active 77150811 Problem Anxiety F41.9 Active 65227059 Problem Chronic kidney disease, stage 3 (moderate) N18.3 Active 781235378 Problem Kidney disease N28.9 Active 35399 001 Problem GERD (gastroesophageal reflux disease) K21.9 Active 154918459 Problem Hypercholesterolemia E78.0 Active 26897594 Problem History of vitamin D deficiency Z86.39 Active 948923322 Problem Obesity E66.9 Active 074154895 Problem Edema R60.9 Active 722049153 Problem HTN (hypertension) I10 Active 3 5868068 ALLERGIES Substance Reaction Event Type Date Status Benicar Hct makes him cough Drug Allergy Aug, Active Lisinopril 20 Mg Tablet makes him feel funny Non Drug Allergy 2016 Active ENCOUNTERS Encounter Location Date Diagnosis [facility] [address] [facility] [id number] [address] [place] [address] Apr, [facility] [address] [facility] [id number] [address] [place] [address] March, [facility] [address] [facility] [id number] [address] [place] [address] March, HTN (hypertension) I10 ; Chr onic kidney disease, stage 3 (moderate) N18.3 and Anxiety F41.9 [facility] [address] [facility] [id number] [address] [place] [address] Feb, Chronic kidney disease, stag e IV (severe) N18.4 [place] [address] [facility] [id number] [address] [place] [address] Feb, [place] [address] [facility] [id number] [address] [place] [address] Jan, Chronic kidney disease, stag e IV (severe) N18.4 [place] [address] [facility] [id number] [address] [place] [address] Jan, Chronic kidney disease, stag e IV (severe) N18.4 [place] [address] [facility] [id number] [address] [place] [address] Jan, HTN (hypertension) I10 and C hronic kidney disease, stage 3 (moderate) N18.3 [place] [address] [facility] [id number] [address] [place] [address] Dec, [facility] [address] [facility] [id number] [address] [place] [address] Aug, [facility] [address] [facility] [id number] [address] [place] [address] Aug, [facility] [address] [facility] [id number] [address] [place] [address] Aug, Gout involving toe of left f oot, unspecified cause, unspecified chronicity M10.9 [facility] [address] [facility] [id number] [address] [place] [address] 11 Jul, 2017 Chronic kidney disease, stag e 3 (moderate) N18.3 [place] [address] [id number] [address] [place] [address] Jul, Chronic kidney disease, stag e 3 (moderate) N18.3 [facility] [address] [id number] [address] [place] [address] Jun, Hypercholesterolemia E78.0 [facility] [address] [id number] [address] [place] [address] Jun, Hypercholesterolemia E78.0 [facility] [address] [id number] [address] [place] [address] May, [facility] [address] [id number] [address] [place] [address] Apr, Acute seasonal allergic rhin itis, unspecified trigger J30.2 [facility] [address] [id number] [address] [place] [address] Apr, [facility] [address] [facility] [id number] [address] [place] [address] March, HTN (hypertension) I10 [facility] [address] [id number] [address] [place] [address] March, Pain in right shoulder M25.5 11 [facility] [address] [facility] [id number] [address] [place] [address] March, Hypercholesterolemia E78.0 [facility] [address] [id number] [address] [place] [address] Feb, Chronic kidney disease, stag e III (moderate) N18.3 [facility] [address] [facility] [id number] [address] [place] [address] Jan, Acute pain of right shoulder M25.511 and Muscle strain of right shoulder, initial encounter S46.911A [facility] [address] [facility] [id number] [address] [place] [address] Jan, Anxiety F41.9 [facility] [address] [facility] [id number] [address] [place] [address] Nov, Anxiety F41.9 and Chronic ki dney disease, stage 3 (moderate) N18.3 [place] [address] [address] Oct, Chronic kidney disease, stag e 3 (moderate) N18.3 ; Gout M10.9 ; Acidosis E87.2 ; Other hyperlipidemia E78.4 ; 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 ; HTN (hypertension) I10 ; Patient's other noncompliance with medication regimen Z91.14 ; Hyperkalemia E87.5 ; Secondary hyperparathyroidism of renal origin N25.81 ; Persistent proteinuria R80.1 and Vitamin D deficiency E55.9 [place] [address] [address] Oct, Acidosis E87.2 ; Vitamin D d [...] unspecified cause, unspecified chronicity, unspecified site M10.9 [place] [address] [address] Oct, [place] [address] [address] Oct, Chronic kidney disease, stag e 3 (moderate) N18.3 ; HTN (hypertension) I10 ; Persistent proteinuria R80.1 and Vitamin D deficiency E55.9 [place] [address] [address] Jul, Snoring R06.83 ; Obesity E66 .9 ; HTN (hypertension) I10 and Kidney disease N28.9 [facility] [address] [address] Jul, [facility] [address] [address] Jun, Snoring R06.83 and HTN (hype rtension) I10 [facility] [address] [place] [id number] [place] [address] Jun, Chronic kidney disease, stag e 3 (moderate) N18.3 [place] [address] [address] Jun, Chronic kidney disease, stag e 3 (moderate) N18.3 [place] [address] [address] Jan, [place] [address] [address] Jan, Kidney disease N28.9 and Hyp ercholesterolemia E78.0 [place] [address] [address] Jan, HTN (hypertension) I10 ; Gou t M10.9 and Kidney disease N28.9 [place] [address] [address] Jan, Gout M10.9 and HTN (hyperten malgorzata) I10 [place] [address] [address] Nov, Gout M10.9 ; HTN (hypertensi on) I10 and Obesity E66.9 [facility] [address] [place] [id number] [place] [address] Oct, Acute gout of right foot, un specified cause M10.9 [facility] [address] [place] [id number] [address] [place] [address] Sep, [place] [address] [address] Sep, Hyperpotassemia 276.7 ; Hype rtensive heart and chronic kidney disease, benign, without heart failure and with chronic kidney disease stage I through stage IV, or unspecified 404.10 ; Dyslipidemia 272.4 ; Vitamin D deficiency 268.9 ; Chronic kidney disease, stage 3 585.3 ; Elevated fasting blood sugar 790.21 ; Secondary hyperparathyroidism (of renal origin) 588.81 ; Proteinuria 791.0 and Acidosis 276.2 [facility] [address] [place] [id number] [address] [place] [address] May, [facility] [address] [address] May, Hyperpotassemia 276.7 ; Hype rtensive heart and chronic kidney disease, benign, without heart failure and with chronic kidney disease stage I through stage IV, or unspecified 404.10 ; Dyslipidemia 272.4 ; Vitamin D deficiency 268.9 and Chronic kidney disease, stage 3 585.3 [facility] [address] [place] [id number] [address] [place] [id number] Apr, Dental examination V72.2 [place] [id number] [address] [place] [address] March, Acidosis 276.2 ; Vitamin D d eficiency 268.9 ; Secondary hyperparathyroidism (of renal origin) 588.81 ; Dyslipidemia 272.4 ; Hyperpotassemia 276.7 ; Hypertensive heart and chronic kidney disease, benign, without heart failure and with chronic kidney disease stage I through stage IV, or unspecified 404.10 ; Elevated fasting blood sugar 790.21 ; Proteinuria 791.0 and Chronic kidney disease, stage 3 585.3 [place] [address] [place] [id number] [address] [place] [address] Feb, [place] [address] [address] Feb, [place] [address] [place] [id number] [address] [place] [address] Jan, [place] [address] [place] [id number] [address] [place] [address] Jan, [facility] [address] [id number] [address] [place] [address], [place] [address] Jan, [facility] [address] [id number] [address] [place] [address], [place] [address] Jan, [facility] [address] [id number] [address] [place] [address], [place] [address] Jan, [facility] [address] [id number] [address] [place] [address], [place] [address] Jan, [facility] [address] [id number] [address] [place] [address], [place] [address] Dec, [facility] [address] [id number] [address] [place] [address], [place] [address] Dec, 2014 [facility] [address] [id number] [address] [place] [address], [place] [address] Dec, [facility] [address] [id number] [address] [place] [address], [place] [address] Dec, [facility] [address] [id number] [address] [place] [address], [place] [address] Dec, [facility] [address] [id number] [address] [place] [address], [place] [address] Dec, [facility] [address] [id number] [address] [place] [address], [place] [address] Dec, [facility] [address] [id number] [address] [place] [address] Dec, [facility] [address] [id number] [address] [place] [address] Nov, [facility] [address] [id number] [address] [place] [address] Nov, [facility] [address] [id number] [address] [place] [address] Oct, [facility] [address] [id number] [facility] [place] [address] Oct, [facility] [address] [id number] [facility] [place] [address] Oct, [facility] [address] [id number] [address] [place] [address], [place] [address] Oct, [facility] [address] [id number] [address] [place] [address], [place] [address] Oct, [facility] [address] [id number] [address] [place] [address], [place] [address] Jun, [facility] [address] [id number] [address] [place] [address], [place] [address] Jun, [facility] [address] [id number] [address] [place] [address], [place] [address] Jun, [facility] [address] [id number] [address] [place] [address], [place] [address] Jun, [facility] [address] [id number] [address] [place] [address], [place] [address] Apr, [facility] [address] [id number] [address] [place] [address], [place] [address] Apr, [facility] [address] [id number] [address] [place] [address], [place] [address] Apr, [facility] [address] [id number] [address] [place] [address], [place] [address] Apr, [facility] [address] [id number] [address] [place] [address], [place] [address] Apr, [facility] [address] [id number] [address] [place] [address], [place] [address] Apr, [facility] [address] [id number] [address] [place] [address], [place] [address] March, [facility] [address] [id number] [address] [place] [address], [place] [address] March, [facility] [address] [id number] [address] [place] [address], [place] [address] March, [facility] [address] [id number] [address] [place] [address], [place] [address] Jan, [facility] [address] [id number] [address] [place] [address], [place] [address] Jan, [facility] [address] [id number] [address] [place] [address], [place] [address] Jan, [facility] [address] [id number] [address] [place] [address], [place] [address] Jan, [facility] [address] [id number] [address] [place] [address], [place] [address] Dec, [facility] [address] [id number] [address] [place] [address], [place] [address] Dec, [facility] [address] [id number] [address] [place] [address], [place] [address] Dec, [facility] [address] [id number] [address] [place] [address], [place] [address] Dec, [facility] [address] [id number] [address] [place] [address], [place] [address] Oct, [facility] [address] [id number] [address] [place] [address], [place] [address] Oct, [facility] [address] [id number] [address] [place] [address], [place] [address] Sep, [facility] [address] [id number] [address] [place] [address], [place] [address] Sep, [facility] [address] [id number] [address] [place] [address], [place] [address] Sep, [facility] [address] [id number] [address] [place] [address], [place] [address] Sep, [facility] [address] [id number] [address] [place] [address], [place] [address] 15 Aug, 2013 [facility] [address] [id number] [address] [place] [address], [place] [id number] 14 Aug, 2013 [facility] [address] [id number] [address] [place] [address], [place] [address] 14 Aug, 2013 [facility] [address] [id number] [address] [place] [address], [place] [address] 13 Aug, 2013 [facility] [address] [id number] [address] [place] [address], [place] [address] 12 Aug, 2013 [facility] [address] [id number] [address] [place] [address], [place] [address] 11 Aug, 2013 [facility] [address] [id number] [address] [place] [address], [place] [address] 10 Aug, 2013 [facility] [address] [id number] [address] [place] [address], [place] [address] 10 Aug, 2013 [facility] [address] [id number] [address] [place] [address], [place] [address] 27 Jul, 2013 [facility] [address] [id number] [address] [place] [address], [place] [address] Jun, [facility] [address] [id number] [address] [place] [address], [place] [address] Jun, [facility] [address] [id number] [address] [place] [address], [place] [address] May, [facility] [address] [id number] [address] [place] [address], [place] [address] May, [facility] [address] [id number] [address] [place] [address], [place] [address] May, [facility] [address] [id number] [address] [place] [address], [place] [address] Apr, [facility] [address] [id number] [address] [place] [address], [place] [address] Apr, [facility] [address] [id number] [address] [place] [address] Apr, [facility] [address] [id number] [address] [place] [address] Apr, [facility] [address] [facility] [id number] [address] [place] [address] March, [facility] [address] [id number] [address] [place] [address] March, [facility] [address] [facility] [id number] [address] [place] [address] Feb, [facility] [address] [id number] [address] [place] [address] Jan, [facility] [address] [facility] [id number] [address] [place] [address] Dec, [facility] [address] [facility] [id number] [address] [place] [address] Dec, [facility] [address] [facility] [id number] [address] [place] [address] Dec, [facility] [address] [facility] [id number] [address] [place] [address] Dec, [facility] [address] [facility] [id number] [address] [place] [address] Dec, IMMUNIZATIONS No Known Immunizations SOCIAL HISTORY Never Assessed REASON FOR VISIT pt has gout. his left foot is bothering him...causing him pain...been hurting hi m for 3 days. last time he had a flare up...was his right foot. debbie pt h as taken allopurinol for this...no relief. pt has also taken indomethacin...and said they helped. also received a dexamethosone injection...and reported that he lped a lot. PLAN OF CARE Activity Details Follow Up prn Reason: VITAL SIGNS Height 70 in 2017-08-13 Weight 307.2 lbs 2017-08-13 Temperature 99.0 degrees Fahrenheit 2017-08-13 Heart Rate 84 bpm 2017-08-13 Respiratory Rate 20 2017-08-13 BMI 44.07 kg/m2 2017-08-13 Blood pressure systolic 140 mmHg 2017-08-13 Blood pressure diastolic 80 mmHg 2017-08-13 MEDICATIONS Medication Instructions Dosage Frequency Start Date End Date Duration S tatus Metoprolol Succinate ER 100 MG Orally 2 times a day 1 tablet 12h Active Indomethacin 50 MG Orally Three times a day 1 capsule with food or milk 8h Aug, Aug, 10 days Active PredniSONE 20 MG Orally Once a day 2 tablet 24h Aug, Aug, 5 days Active HydrALAZINE HCl 25 MG Orally Twice a day 1 tablet 12h Active Metoprolol Succinate ER 50 MG Orally Once a day 1 tablet 24h Active Allopurinol 100 mg Orally Once a day 2 tablets 24h Active Lipitor 40 mg Orally Once a day 1 tablet 24h March, 30 day(s) Active Sodium Bicarbonate 325 MG Orally Twice a day 1 tablets 12h Active Toprol XL 50 mg Orally Once a day with the 100mg tab 1/2 tablet 30 Active Clonidine HCl 0.1 MG Orally twice a day 1 tablet 12h Nov, 30 day(s) Active Aciphex 20 MG TAKE ONE TABLET BY MOUTH DAILY 90 Active Vitamin D-3 66280 iu Orally Once a day 1 capsule 24h Active Lipitor 40 MG Orally Once a day 1 tablet 24h Jun, 30 days Active RESULTS Name Result Date Reference Range URIC ACID, SERUM 2017-08-13 Uric Acid, Serum 7.0 3.7-8.6 CBC 2017-08-13 WBC 15.0 3.4-10.8 RBC 4.82 4.14-5.80 Hemoglobin 15.1 12.6-17.7 Hematocrit 44.0 37.5-51.0 MCV 91 79-97 MCH 31.3 26.6-33.0 MCHC 34.3 31.5-35.7 RDW 13.6 12.3-15.4 Platelets 248 150-379 Neutrophils 58 Not Estab. Lymphs 27 Not Estab. Monocytes 10 Not Estab. Eos 4 Not Estab. Basos 0 Not Estab. Neutrophils (Absolute) 8.6 1.4-7.0 Lymphs (Absolute) 4.0 0.7-3.1 Monocytes(Absolute) 1.6 0.1-0.9 Eos (Absolute) 0.6 0.0-0.4 Baso (Absolute) 0.1 0.0-0.2 Immature Granulocytes 1 Not Estab. Immature Grans (Abs) 0.1 0.0-0.1 CMP 2017-08-13 Glucose, Serum 84 65-99 BUN 35 8-27 Creatinine, Serum 2.50 0.76-1.27 eGFR If NonAfricn Am 26 >59 eGFR If Africn Am 30 >59 BUN/Creatinine Ratio 14 10-24 Sodium, Serum 143 134-144 Potassium, Serum 4.8 3.5-5.2 Chloride, Serum 101 96-106 Carbon Dioxide, Total 22 18-29 Calcium, Serum 9.4 8.6-10.2 Protein, Total, Serum 6.5 6.0-8.5 Albumin, Serum 4.0 3.6-4.8 Globulin, Total 2.5 1.5-4.5 A/G Ratio 1.6 1.2-2.2 Bilirubin, Total 0.2 0.0-1.2 Alkaline Phosphatase, S 74 39-117 AST (SGOT) 15 0-40 ALT (SGPT) 20 0-44 PROCEDURES Procedure Date Ordered Result Body Site LAB NOT [facility] Aug 13, 2017 VENIPUNCT, ROUTINE* Aug 13, 2017 [facility] VISIT ESTABLISHED PATIENT Aug 13, 2017 INSTRUCTIONS MEDICATIONS ADMINISTERED No Known Medications MEDICAL (GENERAL) HISTORY Type Description Date Medical History HTN Medical History decreased kidney function Medical History gout Hospitalization History Infection
--- OUTSIDE RECORDS SUMMARY | 2020-04-09 18:35 | XMS REPORT ---
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 81 Active 54794194 Problem Other hyperlipidemia E78.4 Active 59975697 Problem Anxiety F41.9 Active 36640101 Problem Chronic kidney disease, stage 3 (moderate) N18.3 Active 029438781 Problem Kidney disease N28.9 Active 34777 001 Problem GERD (gastroesophageal reflux disease) K21.9 Active 155345643 Problem Hypercholesterolemia E78.0 Active 20737053 Problem History of vitamin D deficiency Z86.39 Active 003491303 Problem Obesity E66.9 Active 999355083 Problem Edema R60.9 Active 433967589 Problem HTN (hypertension) I10 Active 3 7294495 ALLERGIES No Information ENCOUNTERS Encounter Location Date Diagnosis [facility] [address] [facility] [id number] [address] [place] [id number] March, [facility] [address] [facility] [id number] [address] [place] [phone] Feb, Chronic kidney disease, stag e IV (severe) N18.4 [facility] [address] [facility] [id number] [address] [place] [address] Feb, [facility] [address] [place] [id number] [address] [place] [address] Jan, Chronic kidney disease, stag e IV (severe) N18.4 [facility] [address] [facility] [id number] [address] [place] [address] Jan, Chronic kidney disease, stag e IV (severe) N18.4 [facility] [address] [place] [id number] [place] [address] Jan, HTN (hypertension) I10 and C hronic kidney disease, stage 3 (moderate) N18.3 [place] [address] [place] [id number] [place] [address] Dec, [facility] [address] [place] [id number] [place] [address] Aug, [facility] [address] [address] Aug, [facility] [address] [address] Aug, Gout involving toe of left f oot, unspecified cause, unspecified chronicity M10.9 [facility] [address] [place] [id number] [address] [place] [phone] Jul, Chronic kidney disease, stag e 3 (moderate) N18.3 [facility] [address] [place] [id number] [address] [place] [id number] Jul, Chronic kidney disease, stag e 3 (moderate) N18.3 [place] [address] [place] [id number] [address] [place] [phone] Jun, Hypercholesterolemia E78.0 [place] [address] [place] [id number] [place] [address] Jun, Hypercholesterolemia E78.0 [facility] [address] [address] May, [facility] [address] [facility] [id number] [address] [place] [address] Apr, Acute seasonal allergic rhin itis, unspecified trigger J30.2 [facility] [address] [facility] [id number] [address] [place] [address] Apr, [facility] [address] [facility] [id number] [address] [place] [address] March, HTN (hypertension) I10 [place] [address] [facility] [id number] [address] [place] [phone] March, Pain in right shoulder M25.5 [address] [place] [address] [facility] [id number] [address] [place] [id number] March, Hypercholesterolemia E78.0 [facility] [address] [facility] [id number] [address] [place] [phone] Feb, Chronic kidney disease, stag e III (moderate) N18.3 [facility] [address] [facility] [id number] [address] [place] [address] Jan, Acute pain of right shoulder M25.511 and Muscle strain of right shoulder, initial encounter S46.911A [facility] [address] [place] [id number] [address] [place] [address] Jan, Anxiety F41.9 [place] [address] [place] [id number] [place] [address] Nov, Anxiety F41.9 and Chronic ki dney disease, stage 3 (moderate) N18.3 [place] [address] [facility] [id number] [address] [place] [address] Oct, Chronic kidney disease, stag e 3 (moderate) N18.3 ; Gout M10.9 ; Acidosis E87.2 ; Other hyperlipidemia E78.4 ; 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 ; HTN (hypertension) I10 ; Patient's other noncompliance with medication regimen Z91.14 ; Hyperkalemia E87.5 ; Secondary hyperparathyroidism of renal origin N25.81 ; Persistent proteinuria R80.1 and Vitamin D deficiency E55.9 [place] [address] [address] Oct, Acidosis E87.2 ; Vitamin D d [...] unspecified cause, unspecified chronicity, unspecified site M10.9 [place] [address] [address] Oct, [place] [address] [address] Oct, Chronic kidney disease, stag e 3 (moderate) N18.3 ; HTN (hypertension) I10 ; Persistent proteinuria R80.1 and Vitamin D deficiency E55.9 [place] [address] [address] Jul, Snoring R06.83 ; Obesity E66 .9 ; HTN (hypertension) I10 and Kidney disease N28.9 [facility] [address] [address] Jul, [facility] [address] [address] Jun, Snoring R06.83 and HTN (hype rtension) I10 [place] [address] [address] Jun, Chronic kidney disease, stag e 3 (moderate) N18.3 [place] [address] [address] Jun, Chronic kidney disease, stag e 3 (moderate) N18.3 [place] [address] [address] Jan, [place] [address] [address] Jan, Kidney disease N28.9 and Hyp ercholesterolemia E78.[address] [address] Jan, HTN (hypertension) I10 ; Gou t M10.9 and Kidney disease N28.[address] [address] Jan, Gout M10.9 and HTN (hyperten malgorzata) I10 [address] [address] Nov, Gout M10.9 ; HTN (hypertensi on) I10 and Obesity E66.9 [facility] [address] [address] Oct, Acute gout of right foot, un specified cause M10.[address] [address] Sep, [address] [address] Sep, Hyperpotassemia 276.7 ; Hype rtensive heart and chronic kidney disease, benign, without heart failure and with chronic kidney disease stage I through stage IV, or unspecified 404.10 ; Dyslipidemia 272.4 ; Vitamin D deficiency 268.9 ; Chronic kidney disease, stage 3 585.3 ; Elevated fasting blood sugar 790.21 ; Secondary hyperparathyroidism (of renal origin) 588.81 ; Proteinuria 791.0 and Acidosis 276.[address] [address] May, [place] [id number] [place] [address] May, Hyperpotassemia 276.7 ; Hype rtensive heart and chronic kidney disease, benign, without heart failure and with chronic kidney disease stage I through stage IV, or unspecified 404.10 ; Dyslipidemia 272.4 ; Vitamin D deficiency 268.9 and Chronic kidney disease, stage 3 585.3 [facility] [address] [facility] [id number] [address] [place] [id number] Apr, Dental examination V72.2 [facility] [address] [place] [id number] [address] [place] [phone] March, Acidosis 276.2 ; Vitamin D d eficiency 268.9 ; Secondary hyperparathyroidism (of renal origin) 588.81 ; Dyslipidemia 272.4 ; Hyperpotassemia 276.7 ; Hypertensive heart and chronic kidney disease, benign, without heart failure and with chronic kidney disease stage I through stage IV, or unspecified 404.10 ; Elevated fasting blood sugar 790.21 ; Proteinuria 791.0 and Chronic kidney disease, stage 3 585.3 [facility] [address] [address] Feb, [facility] [address] [address] Feb, [facility] [address] [place] [id number] [address] [place] [address] Jan, [facility] [address] [place] [id number] [address] [place] [address] Jan, [facility] [id number] [place] [address] Jan, [facility] [address] [address] Jan, [facility] [address] [place] [id number] [address] [place] [address] Jan, [facility] [address] [place] [id number] [address] [place] [phone] Jan, [facility] [address] [id number] [address] [place] [address], [place] [address] Dec, 2014 [facility] [address] [id number] [address] [place] [address], [place] [address] Dec, 2014 [facility] [address] [id number] [address] [place] [address], [place] [address] Dec, 2014 [facility] [address] [id number] [address] [place] [address], [place] [address] Dec, 2014 [facility] [address] [id number] [address] [place] [address], [place] [address] Dec, 2014 [facility] [address] [id number] [address] [place] [address], [place] [address] Dec, 2014 [facility] [address] [id number] [address] [place] [address], [place] [address] Dec, [facility] [address] [id number] [address] [place] [address], [place] [address] Dec, [facility] [address] [id number] [address] [place] [address], [place] [address] Nov, [facility] [address] [id number] [address] [place] [address], [place] [address] Nov, [facility] [address] [id number] [address] [place] [address], [place] [address] Oct, [facility] [address] [id number] [address] [place] [address], [place] [address] Oct, [facility] [address] [id number] [address] [place] [address], [place] [address] Oct, [facility] [address] [id number] [address] [place] [address], [place] [address] Oct, [facility] [address] [id number] [address] [place] [address], [place] [address] Oct, [facility] [address] [id number] [facility] [place] [address] Jun, [facility] [address] [id number] [facility] [place] [address] Jun, [facility] [address] [id number] [facility] [place] [address] Jun, [facility] [address] [id number] [address] [place] [address], [place] [address] Jun, [facility] [address] [id number] [address] [place] [address], [place] [address] Apr, [facility] [address] [id number] [address] [place] [address], [place] [address] Apr, [facility] [address] [id number] [address] [place] [address], [place] [address] Apr, [facility] [address] [id number] [address] [place] [address], [place] [address] Apr, [facility] [address] [id number] [address] [place] [address], [place] [address] Apr, [facility] [address] [id number] [address] [place] [address], [place] [address] Apr, [facility] [address] [id number] [address] [place] [address], [place] [address] March, [facility] [address] [id number] [address] [place] [address], [place] [address] March, [facility] [address] [id number] [address] [place] [address], [place] [address] March, [facility] [address] [id number] [address] [place] [address], [place] [address] Jan, [facility] [address] [id number] [address] [place] [address], [place] [address] Jan, [facility] [address] [id number] [address] [place] [address], [place] [address] Jan, [facility] [address] [id number] [address] [place] [address], [place] [address] Jan, [facility] [address] [id number] [address] [place] [address], [place] [address] Dec, [facility] [address] [id number] [address] [place] [address], [place] [address] Dec, [facility] [address] [id number] [address] [place] [address], [place] [address] Dec, [facility] [address] [id number] [address] [place] [address], [place] [address] Dec, [facility] [address] [id number] [address] [place] [address], [place] [address] Oct, [facility] [address] [id number] [address] [place] [address] Oct, [facility] [address] [id number] [address] [place] [address] Sep, [facility] [address] [id number] [address] [place] [address] Sep, [facility] [address] [id number] [address] [place] [address] Sep, [facility] [address] [id number] [address] [place] [address] Sep, [facility] [address] [id number] [address] [place] [id number] 15 Aug, 2013 [facility] [address] [id number] [address] [place] [id number] 14 Aug, 2013 [facility] [address] [id number] [address] [place] [address] 14 Aug, 2013 [facility] [address] [id number] [address] [place] [address] 13 Aug, 2013 [facility] [address] [id number] [address] [place] [address], [place] [address] Aug, [facility] [address] [id number] [address] [place] [address], [place] [address] Aug, [facility] [address] [id number] [address] [place] [address], [place] [address] Aug, [facility] [address] [id number] [address] [place] [address], [place] [address] Aug, [facility] [address] [id number] [address] [place] [address], [place] [address] Jul, [facility] [address] [id number] [address] [place] [address], [place] [address] Jun, [facility] [address] [id number] [address] [place] [address], [place] [address] Jun, [facility] [address] [id number] [address] [place] [address], [place] [address] May, [facility] [address] [id number] [address] [place] [address], [place] [address] May, [facility] [address] [id number] [address] [place] [address], [place] [address] May, [facility] [address] [id number] [address] [place] [address], [place] [address] Apr, [facility] [address] [id number] [address] [place] [address], [place] [address] Apr, [facility] [address] [id number] [address] [place] [address], [place] [address] Apr, [facility] [address] [id number] [address] [place] [address], [place] [address] Apr, [facility] [address] [id number] [address] [place] [address], [place] [address] March, [facility] [address] [id number] [address] [place] [address], [place] [address] March, [facility] [address] [facility] [id number] [address] [place] [id number] Feb, [facility] [address] [facility] [id number] [address] [place] [address] Jan, [facility] [address] [facility] [id number] [address] [place] [address] Dec, [facility] [address] [facility] [id number] [address] [place] [id number] Dec, [facility] [address] [facility] [id number] [address] [place] [address] Dec, [facility] [address] [facility] [id number] [address] [place] [address] Dec, [facility] [address] [facility] [id number] [address] [place] [id number] 14 Dec, 2012 IMMUNIZATIONS No Known Immunizations SOCIAL HISTORY Never Assessed REASON FOR VISIT labs for nephrology PLAN OF CARE VITAL SIGNS MEDICATIONS Unknown Medications RESULTS No Results PROCEDURES No Known procedures INSTRUCTIONS MEDICATIONS ADMINISTERED No Known Medications MEDICAL (GENERAL) HISTORY Type Description Date Medical History HTN Medical History decreased kidney function Medical History gout Hospitalization History Infection
--- OUTSIDE RECORDS SUMMARY | 2020-04-09 18:36 | XMS REPORT | Continuity of Care Document ---
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 NATHAN GN PROSTATIC HYPERPLASIA WITHOUT LOW 02/05/2020 Ot Z91.14 PAT IENT'S OTHER NONCOMPLIANCE WITH MEDIC 03/20/2020 LOCO DEAN, MICHEAL Ot D72.829 ELEVATED WHITE BLOOD CELL COUNT, UNSPECI 03/20/2020 LOCO DEAN, MICHEAL Ot E55.9 VITAMIN D DEFICIENCY, UNSPECIFIED 03/20/2020 LOCO DEAN, MICHEAL Ot E78.5 HYPERLIPIDEMIA, UNSPECIFIED 03/20/2020 LOCO DEAN, MICHEAL Ot E87.2 ACIDOSIS 03/20/2020 LOCO DEAN, MICHEAL Ot E87.5 HYPERKALEMIA 03/20/2020 LOCO DEAN, MICHEAL Ot 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 03/20/2020 LOCO DEAN, MICHEAL Ot M10.9 GOUT, UNSPECIFIED 03/20/2020 MICHEAL ADAN MD Ot N18.5 CHRONIC KIDNEY DISEASE, STAGE 5 03/20/2020 MICHEAL ADAN MD Ot N25.81 SECONDARY HYPERPARATHYROIDISM OF RENAL O 03/20/2020 MICHEAL ADAN MD Ot N40.0 BENIGN PROSTATIC HYPERPLASIA WITHOUT LOW 03/20/2020 MICHEAL ADAN MD Ot R80.8 OTHER PROTEINURIA 03/20/2020 MICHEAL ADAN MD Ot Z91.14 PATIENT'S OTHER NONCOMPLIANCE WITH MEDIC Procedures Code [place] [address] ROUT INE VENIPUNCTURE 12/27/2012 12673 CBC 12/27/2012 52375 LIPI D PANEL 12/27/2012 46618 CMP 12/27/2012 [id number] GF R CALC (RESULT ONLY) 12/27/2012 57788 A1C (RML) 12/27/2012 49215 ROUT INE VENIPUNCTURE 04/13/2013 70483 BMP 04/13/2013 80876 LIPI D PANEL 04/13/2013 [id number] GF R CALC (RESULT ONLY) 04/13/2013 Nephrolog Heaven Lopez 04/15/2013 14454 ROUT INE VENIPUNCTURE 08/05/2013 79129 A1C (IN-HOUSE) 08/05/2013 49846 INSU MARIAH LEVEL 08/05/2013 10859 ROUT INE VENIPUNCTURE 08/18/2013 22551 LIPI D PANEL 08/19/2013 27366 UA W /MICROSCOPY 08/19/2013 30375 URIN E CREATININE (RANDOM) 08/19/2013 43780 ELTON MIN D 25-HYDROXY (D2,D3, TOTAL) 08/19/2013 78548 COMPA L PROFILE 08/19/2013 [id number] GF R CALC (RESULT ONLY) 08/19/2013 02403 URIN E PROTEIN 08/19/2013 [id number] CA LCIUM (RESULT ONLY) 08/20/2013 [id number] PT H INTACT CARINA (RESULT ONLY) 08/20/2013 15364 CULT URE URINE 08/23/2013 13617 PTH (intact) (ORDER ONLY) 09/12/2013 75702 ROUT INE VENIPUNCTURE 12/27/2013 96504 A1C (IN-HOUSE) 12/27/2013 21795 CBC 12/27/2013 [id number] GF R CALC (RESULT ONLY) 12/27/2013 28265 COMPA L PROFILE 12/27/2013 01848 IRON SERUM 12/27/2013 06937 IRON BNDNG CAP 12/27/2013 97595 URIN E CREATININE (RANDOM) 12/27/2013 89202 ELTON MIN D 25-HYDROXY (D2,D3, TOTAL) 12/27/2013 99564 FERRITIN 12/27/2013 96790 URIN E PROTEIN 12/27/2013 10804 UA W /MICROSCOPY 12/27/2013 24180 PHOS PHORUS 12/28/2013 IRGROUP IR ON GROUP (Iron,TIBC, Ferritin) 12/28/2013 50373 ROUT INE VENIPUNCTURE 03/29/2014 [id number] GF R CALC (RESULT ONLY) 03/30/2014 96346 LIPI D PANEL 03/30/2014 26521 COMPA L PROFILE 03/30/2014 25986 CBC 03/30/2014 60696 UA W /MICROSCOPY 03/30/2014 63903 URIN E CREATININE (RANDOM) 03/30/2014 06144 ELTON MIN D 25-HYDROXY (D2,D3, TOTAL) 03/30/2014 70541 URIN E PROTEIN 03/30/2014 72866 ROUT INE VENIPUNCTURE 06/19/2014 29182 CBC 06/19/2014 29467 LIPI D PANEL 06/19/2014 46519 COMPA L PROFILE 06/19/2014 [id number] GF R CALC (RESULT ONLY) 06/19/2014 79835 ELTON MIN D 25-HYDROXY (D2,D3, TOTAL) 06/19/2014 96496 UA W /MICROSCOPY 06/19/2014 PRO/CRE UR INE PROTEIN TO CREATNINE RATIO 06/19/2014 45729 ROUT INE VENIPUNCTURE 10/27/2014 29446 PHOS PHORUS 10/27/2014 34582 CBC 10/27/2014 [id number] GF R CALC (RESULT ONLY) 10/27/2014 46558 LIPI D PANEL 10/27/2014 82077 COMPA L PROFILE 10/27/2014 55500 ELTON MIN D 25-HYDROXY (D2,D3, TOTAL) 10/27/2014 43693 UA W /MICROSCOPY 10/27/2014 PRO/CRE UR INE PROTEIN TO CREATNINE RATIO 10/27/2014 [id number] CA LCIUM (RESULT ONLY) 10/27/2014 [id number] PT H INTACT CARINA (RESULT ONLY) 10/27/2014 62809 PTH (intact) (ORDER ONLY) 11/06/2014 75069 PULM ONARY FUNCTION TEST (IN- HOUSE) 12/21/2014 73468 RESP IRATORY FLOW VOLUME LOOP 12/21/2014 53812 OXIMETRY 01/09/2015 Results Test Result Range Automated blood complete blood count (he mogram) panel - 07/22/18 06:55 Blood leukocytes automated count (number/volume) 11.5 10*3/uL 4.3-11.0 Blood erythrocytes automated count (number/volume) 4.54 10*6/uL 4.35-5.85 Venous blood hemoglobin measurement (mass/volume) 14.0 g/dL 13.3-17.7 Blood hematocrit (volume fraction) 42 % 40-54 Automated erythrocyte mean corpuscular volume 92 [ foz_us] 80-99 Automated erythrocyte mean corpuscular h emoglobin (mass per erythrocyte) 31 pg 25-34 Automated erythrocyte mean corpuscular h emoglobin concentration measurement (mass/volume) 34 g/dL 32-36 Automated erythrocyte distribution width ratio 12. 9 % 10.0- 14.5 Automated blood platelet count (count/volume) 206 10*3/uL 130-400 Automated blood platelet mean volume measurement 11.7 [foz_us] 7.4-10.4 Serum or plasma renal function panel (Na , K, Cl, CO2, BUN, Cr, glucose,Ca, phos, alb) - 07/22/18 06:55 Serum or plasma sodium measurement (moles/volume) 136 mmol/L 135-145 Serum or plasma potassium measurement (moles/volume) 4.6 mmol/L 3.6-5.0 Serum or plasma chloride measurement (moles/volume) 105 mmol/L 98-107 Carbon dioxide 19 mmol/L 21-32 Serum or plasma anion gap determination (moles/volume) 12 mmol/L 5-14 Serum or plasma urea nitrogen measurement (mass/volume ) 50 mg/dL 7-18 Serum or plasma creatinine measurement (mass/volume) 3.33 mg/dL 0.60-1.30 Serum or plasma urea nitrogen/creatinine mass ratio 15 NRG Serum or plasma creatinine measurement w ith calculation of estimated glomerular filtration rate 19 NRG Serum or plasma glucose measurement (mass/volume) 158 mg/dL 70-105 Serum or plasma calcium measurement (mass/volume) 9.5 mg/dL 8.5-10.1 Serum or plasma albumin measurement (mass/volume) 3.9 g/dL 3.2-4.5 Serum or plasma phosphate measurement (mass/volume) 3.6 mg/dL 2.3-4.7 Serum or plasma uric acid measurement (m ass/volume) - 07/22/18 06:55 Serum or plasma uric acid measurement (mass/volume) 8.9 mg/dL 2.6-7.2 Urine protein/creatinine mass ratio - 07:00 Urine protein measurement (mass/volume) 256 mg/dL 6-12 Urine creatinine measurement (mass/volume) 71 mg/d L 30-125 Urine protein/creatinine mass ratio 3.61 NR Automated blood complete blood count (he mogram) panel - 08/20/18 06:47 Blood leukocytes automated count (number/volume) 13.0 10*3/uL 4.3-11.0 Blood erythrocytes automated count (number/volume) 4.50 10*6/uL 4.35-5.85 Venous blood hemoglobin measurement (mass/volume) 13.7 g/dL 13.3-17.7 Blood hematocrit (volume fraction) 42 % 40-54 Automated erythrocyte mean corpuscular volume 92 [ foz_us] 80-99 Automated erythrocyte mean corpuscular h emoglobin (mass per erythrocyte) 30 pg 25-34 Automated erythrocyte mean corpuscular h emoglobin concentration measurement (mass/volume) 33 g/dL 32-36 Automated erythrocyte distribution width ratio 13. 1 % 10.0- 14.5 Automated blood platelet count (count/volume) 173 10*3/uL 130-400 Automated blood platelet mean volume measurement 12.0 [foz_us] 7.4-10.4 Serum or plasma renal function panel (Na , K, Cl, CO2, BUN, Cr, glucose,Ca, phos, alb) - 08/20/18 06:47 Serum or plasma sodium measurement (moles/volume) 138 mmol/L 135-145 Serum or plasma potassium measurement (moles/volume) 4.9 mmol/L 3.6-5.0 Serum or plasma chloride measurement (moles/volume) 107 mmol/L 98-107 Carbon dioxide 20 mmol/L 21-32 Serum or plasma anion gap determination (moles/volume) 11 mmol/L 5-14 Serum or plasma urea nitrogen measurement (mass/volume ) 50 mg/dL 7-18 Serum or plasma creatinine measurement (mass/volume) 3.64 mg/dL 0.60-1.30 Serum or plasma urea nitrogen/creatinine mass ratio 14 NRG Serum or plasma creatinine measurement w ith calculation of estimated glomerular filtration rate 17 NRG Serum or plasma glucose measurement (mass/volume) 136 mg/dL 70-105 Serum or plasma calcium measurement (mass/volume) 9.1 mg/dL 8.5-10.1 Serum or plasma albumin measurement (mass/volume) 3.9 g/dL 3.2-4.5 Serum or plasma phosphate measurement (mass/volume) 3.9 mg/dL 2.3-4.7 Serum or plasma uric acid measurement (m ass/volume) - 08/20/18 06:47 Serum or plasma uric acid measurement (mass/volume) 9.7 mg/dL 2.6-7.2 Complete urinalysis with reflex to cultu re - 08/20/18 06:50 Urine color determination YELLOW NRG Urine clarity determination SLIGHTLY CLOUDY NRG Urine pH measurement by test strip 6 5-9 Specific gravity of urine by test strip 1.020 1.016-1.022 Urine protein assay by test strip, semi-quantitative 4+ NEGATIVE Urine glucose detection by automated test strip 1+ NEGATIVE Erythrocytes detection in urine sediment by light micr oscopy 2+ NEGATIVE Urine ketones detection by automated test strip NE GATIVE NEGATIVE Urine nitrite detection by test strip NEGATIVE NEGATIVE Urine total bilirubin detection by test strip NEGA TIVE NEGATIVE Urine urobilinogen measurement by automated test strip (mass/volume) NORMAL NORMAL Urine leukocyte esterase detection by dipstick NEG ATIVE NEGATIVE Automated urine sediment erythrocyte cou nt by microscopy (number/high power field) RARE NRG Automated urine sediment leukocyte count by microscopy (number/high power field) RARE NRG Bacteria detection in urine sediment by light microsco py NEGATIVE NRG Squamous epithelial cells detection in u rine sediment by light microscopy NONE NRG Crystals detection in urine sediment by light microsco py NONE NRG Casts detection in urine sediment by light microscopy NONE NRG Mucus detection in urine sediment by light microscopy NEGATIVE NRG Complete urinalysis with reflex to culture NO NRG Urine protein/creatinine mass ratio - 06:51 Urine protein measurement (mass/volume) 210 mg/dL 6-12 Urine creatinine measurement (mass/volume) 82 mg/d L 30-125 Urine protein/creatinine mass ratio 2.56 NRG Automated blood complete blood count (he mogram) panel - 11/08/18 13:18 Blood leukocytes automated count (number/volume) 13.1 10*3/uL 4.3-11.0 Blood erythrocytes automated count (number/volume) 4.92 10*6/uL 4.35-5.85 Venous blood hemoglobin measurement (mass/volume) 15.1 g/dL 13.3-17.7 Blood hematocrit (volume fraction) 45 % 40-54 Automated erythrocyte mean corpuscular volume 91 [ foz_us] 80-99 Automated erythrocyte mean corpuscular h emoglobin (mass per erythrocyte) 31 pg 25-34 Automated erythrocyte mean corpuscular h emoglobin concentration measurement (mass/volume) 34 g/dL 32-36 Automated erythrocyte distribution width ratio 13. 3 % 10.0- 14.5 Automated blood platelet count (count/volume) 237 10*3/uL 130-400 Automated blood platelet mean volume measurement 11.4 [foz_us] 7.4-10.4 Serum or plasma renal function panel (Na , K, Cl, CO2, BUN, Cr, glucose,Ca, phos, alb) - 11/08/18 13:18 Serum or plasma sodium measurement (moles/volume) 138 mmol/L 135-145 Serum or plasma potassium measurement (moles/volume) 4.4 mmol/L 3.6-5.0 Serum or plasma chloride measurement (moles/volume) 106 mmol/L 98-107 Carbon dioxide 21 mmol/L 21-32 Serum or plasma anion gap determination (moles/volume) 11 mmol/L 5-14 Serum or plasma urea nitrogen measurement (mass/volume ) 39 mg/dL 7-18 Serum or plasma creatinine measurement (mass/volume) 3.16 mg/dL 0.60-1.30 Serum or plasma urea nitrogen/creatinine mass ratio 12 NRG Serum or plasma creatinine measurement w ith calculation of estimated glomerular filtration rate 20 NRG Serum or plasma glucose measurement (mass/volume) 112 mg/dL 70-105 Serum or plasma calcium measurement (mass/volume) 9.4 mg/dL 8.5-10.1 Serum or plasma albumin measurement (mass/volume) 4.0 g/dL 3.2-4.5 Serum or plasma phosphate measurement (mass/volume) 3.1 mg/dL 2.3-4.7 Serum or plasma uric acid measurement (m ass/volume) - 11/08/18 13:18 Serum or plasma uric acid measurement (mass/volume) 8.4 mg/dL 2.6-7.2 Serum or plasma intact pararthyroid horm one measurement (mass/volume) - 11/08/18 13:18 Serum or plasma intact parathyroid hormone measurement (mass/volume) 266.8 pg/mL 9.0-77.0 Bio-intact parathyroid hormone (PTH) measurement with calcium 9.5 % 8.5-10.5 VITAMIN D 25-HYDROXY - 11/08/18 13:18 VITAMIN D 25-HYDROXY (TOTAL) 25.1 % 3 0.0-100.0 Complete urinalysis with reflex to cultu re - 11/08/18 13:25 Urine color determination YELLOW NRG Urine clarity determination CLEAR NR G Urine pH measurement by test strip 6 5-9 Specific gravity of urine by test strip 1.020 1.016-1.022 Urine protein assay by test strip, semi-quantitative 4+ NEGATIVE Urine glucose detection by automated test strip 1+ NEGATIVE Erythrocytes detection in urine sediment by light micr oscopy 2+ NEGATIVE Urine ketones detection by automated test strip NE GATIVE NEGATIVE Urine nitrite detection by test strip NEGATIVE NEGATIVE Urine total bilirubin detection by test strip NEGA TIVE NEGATIVE Urine urobilinogen measurement by automated test strip (mass/volume) NORMAL NORMAL Urine leukocyte esterase detection by dipstick NEG ATIVE NEGATIVE Automated urine sediment erythrocyte cou nt by microscopy (number/high power field) NONE NRG Automated urine sediment leukocyte count by microscopy (number/high power field) [HPF] NRG Bacteria detection in urine sediment by light microsco py NEGATIVE NRG Squamous epithelial cells detection in u rine sediment by light microscopy 0-2 NRG Crystals detection in urine sediment by light microsco py NONE NRG Casts detection in urine sediment by light microscopy PRESENT NRG Mucus detection in urine sediment by light microscopy NEGATIVE NRG Complete urinalysis with reflex to culture NO NRG Hyaline casts detection in urine sediment by light wong roscopy 0-2 NRG Granular casts detection in urine sediment by light mi croscopy RARE NRG Urine protein/creatinine mass ratio - 13:25 Urine protein measurement (mass/volume) 588 mg/dL 6-12 Urine creatinine measurement (mass/volume) 110 mg/ dL 30-125 Urine protein/creatinine mass ratio 5.35 NRG Automated blood complete blood count (he mogram) panel - 05/28/19 10:06 Blood leukocytes automated count (number/volume) 11.5 10*3/uL 4.3-11.0 Blood erythrocytes automated count (number/volume) 4.86 10*6/uL 4.35-5.85 Venous blood hemoglobin measurement (mass/volume) 14.7 g/dL 13.3-17.7 Blood hematocrit (volume fraction) 44 % 40-54 Automated erythrocyte mean corpuscular volume 91 [ foz_us] 80-99 Automated erythrocyte mean corpuscular h emoglobin (mass per erythrocyte) 30 pg 25-34 Automated erythrocyte mean corpuscular h emoglobin concentration measurement (mass/volume) 33 g/dL 32-36 Automated erythrocyte distribution width ratio 13. 3 % 10.0- 14.5 Automated blood platelet count (count/volume) 207 10*3/uL 130-400 Automated blood platelet mean volume measurement 11.8 [foz_us] 7.4-10.4 Serum or plasma renal function panel (Na , K, Cl, CO2, BUN, Cr, glucose,Ca, phos, alb) - 05/28/19 10:06 Serum or plasma sodium measurement (moles/volume) 138 mmol/L 135-145 Serum or plasma potassium measurement (moles/volume) 4.7 mmol/L 3.6-5.0 Serum or plasma chloride measurement (moles/volume) 107 mmol/L 98-107 Carbon dioxide 19 mmol/L 21-32 Serum or plasma anion gap determination (moles/volume) 12 mmol/L 5-14 Serum or plasma urea nitrogen measurement (mass/volume ) 44 mg/dL 7-18 Serum or plasma creatinine measurement (mass/volume) 4.39 mg/dL 0.60-1.30 Serum or plasma urea nitrogen/creatinine mass ratio 10 NRG Serum or plasma creatinine measurement w ith calculation of estimated glomerular filtration rate 13 NRG Serum or plasma glucose measurement (mass/volume) 125 mg/dL 70-105 Serum or plasma calcium measurement (mass/volume) 9.6 mg/dL 8.5-10.1 Serum or plasma albumin measurement (mass/volume) 4.0 g/dL 3.2-4.5 Serum or plasma phosphate measurement (mass/volume) 3.9 mg/dL 2.3-4.7 Serum or plasma intact pararthyroid horm one measurement (mass/volume) - 05/28/19 10:06 Serum or plasma intact parathyroid hormone measurement (mass/volume) 443.0 pg/mL 9.0-77.0 Bio-intact parathyroid hormone (PTH) measurement with calcium 9.0 % 8.5-10.5 VITAMIN D 25-HYDROXY - 05/28/19 10:06 VITAMIN D 25-HYDROXY (TOTAL) 19.1 % 3 0.0-100.0 Complete urinalysis with reflex to cultu re - 05/28/19 10:15 Urine color determination YELLOW NRG Urine clarity determination CLEAR NR G Urine pH measurement by test strip 6 5-9 Specific gravity of urine by test strip 1.015 1.016-1.022 Urine protein assay by test strip, semi-quantitative 4+ NEGATIVE Urine glucose detection by automated test strip 2+ NEGATIVE Erythrocytes detection in urine sediment by light micr oscopy 2+ NEGATIVE Urine ketones detection by automated test strip NE GATIVE NEGATIVE Urine nitrite detection by test strip NEGATIVE NEGATIVE Urine total bilirubin detection by test strip NEGA TIVE NEGATIVE Urine urobilinogen measurement by automated test strip (mass/volume) NORMAL NORMAL Urine leukocyte esterase detection by dipstick NEG ATIVE NEGATIVE Automated urine sediment erythrocyte cou nt by microscopy (number/high power field) [HPF] NRG Automated urine sediment leukocyte count by microscopy (number/high power field) RARE NRG Bacteria detection in urine sediment by light microsco py TRACE NRG Squamous epithelial cells detection in u rine sediment by light microscopy NONE NRG Crystals detection in urine sediment by light microsco py NONE NRG Casts detection in urine sediment by light microscopy NONE NRG Mucus detection in urine sediment by light microscopy NEGATIVE NRG Complete urinalysis with reflex to culture NO NRG Urine protein/creatinine mass ratio - 10:15 Urine protein measurement (mass/volume) 750 mg/dL 6-12 Urine creatinine measurement (mass/volume) 122 mg/ dL 30-125 Urine protein/creatinine mass ratio 6.15 NRG Serum or plasma renal function panel (Na , K, Cl, CO2, BUN, Cr, glucose,Ca, phos, alb) - 06/03/19 07:07 Serum or plasma sodium measurement (moles/volume) 139 mmol/L 135-145 Serum or plasma potassium measurement (moles/volume) 4.6 mmol/L 3.6-5.0 Serum or plasma chloride measurement (moles/volume) 109 mmol/L 98-107 Carbon dioxide 16 mmol/L 21-32 Serum or plasma anion gap determination (moles/volume) 14 mmol/L 5-14 Serum or plasma urea nitrogen measurement (mass/volume ) 59 mg/dL 7-18 Serum or plasma creatinine measurement (mass/volume) 4.70 mg/dL 0.60-1.30 Serum or plasma urea nitrogen/creatinine mass ratio 13 NRG Serum or plasma creatinine measurement w ith calculation of estimated glomerular filtration rate 12 NRG Serum or plasma glucose measurement (mass/volume) 125 mg/dL 70-105 Serum or plasma calcium measurement (mass/volume) 9.3 mg/dL 8.5-10.1 Serum or plasma albumin measurement (mass/volume) 3.9 g/dL 3.2-4.5 Serum or plasma phosphate measurement (mass/volume) 4.0 mg/dL 2.3-4.7 Automated blood complete blood count ( mogram) panel - 01/22/20 11:06 Blood leukocytes automated count (number/volume) 12.2 10*3/uL 4.3-11.0 Blood erythrocytes automated count (number/volume) 4.45 10*6/uL 4.35-5.85 Venous blood hemoglobin measurement (mass/volume) 13.2 g/dL 13.3-17.7 Blood hematocrit (volume fraction) 41 % 40-54 Automated erythrocyte mean corpuscular volume 92 [ foz_us] 80-99 Automated erythrocyte mean corpuscular h emoglobin (mass per erythrocyte) 30 pg 25-34 Automated erythrocyte mean corpuscular h emoglobin concentration measurement (mass/volume) 32 g/dL 32-36 Automated erythrocyte distribution width ratio 14. 9 % 10.0- 14.5 Automated blood platelet count (count/volume) 178 10*3/uL 130-400 Automated blood platelet mean volume measurement 12.3 [foz_us] 7.4-10.4 Complete urinalysis with reflex to cultu re - 01/22/20 11:06 Urine color determination YELLOW NRG Urine clarity determination CLEAR NR G Urine pH measurement by test strip 5.5 5-9 Specific gravity of urine by test strip 1.025 1.016-1.022 Urine protein assay by test strip, semi-quantitative 3+ NEGATIVE Urine glucose detection by automated test strip TR LENIN NEGATIVE Erythrocytes detection in urine sediment by light micr oscopy 1+ NEGATIVE Urine ketones detection by automated test strip NE GATIVE NEGATIVE Urine nitrite detection by test strip NEGATIVE NEGATIVE Urine total bilirubin detection by test strip NEGA TIVE NEGATIVE Urine urobilinogen measurement by automated test strip (mass/volume) 0.2 mg/dL < = 1.0 Urine leukocyte esterase detection by dipstick NEG ATIVE NEGATIVE Automated urine sediment erythrocyte cou nt by microscopy (number/high power field) NONE NRG Automated urine sediment leukocyte count by microscopy (number/high power field) RARE NRG Bacteria detection in urine sediment by light microsco py NEGATIVE NRG Squamous epithelial cells detection in u rine sediment by light microscopy RARE NRG Crystals detection in urine sediment by light microsco py NONE NRG Casts detection in urine sediment by light microscopy NONE NRG Mucus detection in urine sediment by light microscopy NEGATIVE NRG Complete urinalysis with reflex to culture NO NRG Serum or plasma renal function panel (Na , K, Cl, CO2, BUN, Cr, glucose,Ca, phos, alb) - 01/22/20 11:06 Serum or plasma sodium measurement (moles/volume) 141 mmol/L 135-145 Serum or plasma potassium measurement (moles/volume) 5.3 mmol/L 3.6-5.0 Serum or plasma chloride measurement (moles/volume) 113 mmol/L 98-107 Carbon dioxide 15 mmol/L 21-32 Serum or plasma anion gap determination (moles/volume) 13 mmol/L 5-14 Serum or plasma urea nitrogen measurement (mass/volume ) 69 mg/dL 7-18 Serum or plasma creatinine measurement (mass/volume) 5.11 mg/dL 0.60-1.30 Serum or plasma urea nitrogen/creatinine mass ratio 14 NRG Serum or plasma creatinine measurement w ith calculation of estimated glomerular filtration rate 11 NRG Serum or plasma glucose measurement (mass/volume) 100 mg/dL 70-105 Serum or plasma calcium measurement (mass/volume) 8.8 mg/dL 8.5-10.1 Serum or plasma albumin measurement (mass/volume) 4.2 g/dL 3.2-4.5 Serum or plasma phosphate measurement (mass/volume) 5.5 mg/dL 2.3-4.7 Serum or plasma uric acid measurement (m ass/volume) - 01/22/20 11:06 Serum or plasma uric acid measurement (mass/volume) 8.1 mg/dL 2.6-7.2 Urine protein/creatinine mass ratio - 11:06 Urine protein measurement (mass/volume) 224 mg/dL 6-12 Urine creatinine measurement (mass/volume) 84 mg/d L 30-125 Urine protein/creatinine mass ratio 2.67 NRG Complete blood count (CBC) with automate d white blood cell (WBC) differential - 03/19/20 06:35 Blood leukocytes automated count (number/volume) 11.1 10*3/uL 4.3-11.0 Blood erythrocytes automated count (number/volume) 4.36 10*6/uL 4.35-5.85 Venous blood hemoglobin measurement (mass/volume) 12.9 g/dL 13.3-17.7 Blood hematocrit (volume fraction) 40 % 40-54 Automated erythrocyte mean corpuscular volume 92 [ foz_us] 80-99 Automated erythrocyte mean corpuscular h emoglobin (mass per erythrocyte) 30 pg 25-34 Automated erythrocyte mean corpuscular h emoglobin concentration measurement (mass/volume) 32 g/dL 32-36 Automated erythrocyte distribution width ratio 14. 4 % 10.0- 14.5 Automated blood platelet count (count/volume) 174 10*3/uL 130-400 Automated blood platelet mean volume measurement 12.1 [foz_us] 7.4-10.4 Automated blood neutrophils/100 leukocytes 55 % 42-75 Automated blood lymphocytes/100 leukocytes 28 % 12-44 Blood monocytes/100 leukocytes 10 % 0-12 Automated blood eosinophils/100 leukocytes 7 % 0-10 Automated blood basophils/100 leukocytes 0 % 0-10 Blood neutrophils automated count (number/volume) 6.1 10*3 1.8-7.8 Blood lymphocytes automated count (number/volume) 3.1 10*3 1.0-4.0 Blood monocytes automated count (number/volume) 1. 1 10*3 0.0-1.0 Automated eosinophil count 0.8 10*3/uL 0 .0-0.3 Automated blood basophil count (count/volume) 0.1 10*3/uL 0.0-0.1 Serum or plasma renal function panel (Na , K, Cl, CO2, BUN, Cr, glucose,Ca, phos, alb) - 03/19/20 06:35 Serum or plasma sodium measurement (moles/volume) 141 mmol/L 135-145 Serum or plasma potassium measurement (moles/volume) 4.9 mmol/L 3.6-5.0 Serum or plasma chloride measurement (moles/volume) 111 mmol/L 98-107 Carbon dioxide 17 mmol/L 21-32 Serum or plasma anion gap determination (moles/volume) 13 mmol/L 5-14 Serum or plasma urea nitrogen measurement (mass/volume ) 52 mg/dL 7-18 Serum or plasma creatinine measurement (mass/volume) 5.47 mg/dL 0.60-1.30 Serum or plasma urea nitrogen/creatinine mass ratio 10 NRG Serum or plasma creatinine measurement w ith calculation of estimated glomerular filtration rate 10 NRG Serum or plasma glucose measurement (mass/volume) 105 mg/dL 70-105 Serum or plasma calcium measurement (mass/volume) 8.8 mg/dL 8.5-10.1 Serum or plasma albumin measurement (mass/volume) 4.1 g/dL 3.2-4.5 Serum or plasma phosphate measurement (mass/volume) 4.7 mg/dL 2.3-4.7 Serum or plasma intact pararthyroid horm one measurement (mass/volume) - 03/19/20 06:35 Serum or plasma intact parathyroid hormone measurement (mass/volume) 606.2 pg/mL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
--- OUTSIDE RECORDS SUMMARY | 2020-04-09 18:36 | XMS REPORT ---
Author Author Yves Beaver Organization [facility] Address [address] [place] [address] Care Team Providers Care Mail Inserter Name Role Phone EDUIN Beaver Unavailable PROBLEMS Type Condition ICD9-CM Code UVM96-GX Code Onset Dates Condition S tatus SNOMED Code Problem Gout M10.9 Active 28361201 Problem Vitamin D deficiency E55.9 Active 41074130 Problem 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 Activ e 94416961 Problem Chronic kidney disease, stage IV (severe) N18.4 Active 982638392 Problem Gout involving toe of left f oot, unspecified cause, unspecified chronicity M10.9 Active 17252870 Problem Secondary hyperparathyroidism of renal origin N25. 81 Active 34032399 Problem Other hyperlipidemia E78.4 Active 15755504 Problem Anxiety F41.9 Active 13598363 Problem Chronic kidney disease, stage 3 (moderate) N18.3 Active 523355959 Problem Kidney disease N28.9 Active 87196 001 Problem GERD (gastroesophageal reflux disease) K21.9 Active 023515194 Problem Hypercholesterolemia E78.0 Active 96955598 Problem History of vitamin D deficiency Z86.39 Active 508556370 Problem Obesity E66.9 Active 703466446 Problem Edema R60.9 Active 692461982 Problem HTN (hypertension) I10 Active 3 [id number] ALLERGIES No Information ENCOUNTERS Encounter Location Date Diagnosis [facility] [address] [facility] [id number] [address] [place] [phone] Apr, [facility] [address] [facility] [id number] [address] [place] [phone] March, [facility] [address] [facility] [id number] [address] [place] [address] March, HTN (hypertension) I10 ; Chr onic kidney disease, stage 3 (moderate) N18.3 and Anxiety F41.9 [facility] [address] [facility] [id number] [address] [place] [phone] Feb, Chronic kidney disease, stag e IV (severe) N18.4 [facility] [address] [place] [id number] [address] [place] [phone] Feb, [facility] [address] [place] [id number] [place] [address] Jan, Chronic kidney disease, stag e IV (severe) N18.4 [place] [address] [place] [id number] [place] [address] Jan, Chronic kidney disease, stag e IV (severe) N18.4 [place] [address] [place] [id number] [place] [address] Jan, HTN (hypertension) I10 and C hronic kidney disease, stage 3 (moderate) N18.3 [place] [address] [place] [id number] [address] [place] [address] Dec, [facility] [address] [place] [id number] [place] [address] Aug, [facility] [address] [place] [id number] [place] [address] Aug, [facility] [address] [place] [id number] [place] [address] Aug, Gout involving toe of left f oot, unspecified cause, unspecified chronicity M10.9 [place] [address] [place] [id number] [address] [place] [phone] Jul, Chronic kidney disease, stag e 3 (moderate) N18.3 [place] [address] [place] [id number] [address] [place] [address] Jul, Chronic kidney disease, stag e 3 (moderate) N18.3 [place] [address] [place] [id number] [address] [place] [address] Jun, Hypercholesterolemia E78.0 [facility] [address] [facility] [id number] [address] [place] [address] Jun, Hypercholesterolemia E78.0 [facility] [address] [facility] [id number] [address] [place] [phone] May, [facility] [address] [facility] [id number] [address] [place] [address] Apr, Acute seasonal allergic rhin itis, unspecified trigger J30.2 [facility] [address] [facility] [id number] [address] [place] [address] Apr, [facility] [address] [facility] [id number] [address] [place] [address] March, HTN (hypertension) I10 [facility] [address] [place] [id number] [address] [place] [address] March, Pain in right shoulder M25.5 11 [facility] [address] [facility] [id number] [address] [place] [address] March, Hypercholesterolemia E78.0 [facility] [address] [facility] [id number] [address] [place] [address] Feb, Chronic kidney disease, stag e III (moderate) N18.3 [facility] [address] [facility] [id number] [address] [place] [address] Jan, Acute pain of right shoulder M25.511 and Muscle strain of right shoulder, initial encounter S46.911A [facility] [address] [facility] [id number] [address] [place] [address] Jan, Anxiety F41.9 [facility] [address] [place] [id number] [address] [place] [address] Nov, Anxiety F41.9 and Chronic ki dney disease, stage 3 (moderate) N18.3 [facility] [address] [address] Oct, Chronic kidney disease, stag e 3 (moderate) N18.3 ; Gout M10.9 ; Acidosis E87.2 ; Other hyperlipidemia E78.4 ; 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 ; HTN (hypertension) I10 ; Patient's other noncompliance with medication regimen Z91.14 ; Hyperkalemia E87.5 ; Secondary hyperparathyroidism of renal origin N25.81 ; Persistent proteinuria R80.1 and Vitamin D deficiency E55.9 [facility] [address] [address] Oct, Acidosis E87.2 ; Vitamin D d [...] unspecified cause, unspecified chronicity, unspecified site M10.9 [facility] [address] [address] Oct, [facility] [address] [address] Oct, Chronic kidney disease, stag e 3 (moderate) N18.3 ; HTN (hypertension) I10 ; Persistent proteinuria R80.1 and Vitamin D deficiency E55.9 [facility] [address] [place] [id number] [address] [place] [address] Jul, Snoring R06.83 ; Obesity E66 .9 ; HTN (hypertension) I10 and Kidney disease N28.9 [facility] [address] [place] [id number] [address] [place] [address] Jul, [facility] [address] [address] Jun, Snoring R06.83 and HTN (hype rtension) I10 [place] [address] [address] Jun, Chronic kidney disease, stag e 3 (moderate) N18.3 [place] [address] [place] [id number] [place] [address] Jun, Chronic kidney disease, stag e 3 (moderate) N18.3 [place] [address] [address] Jan, [place] [address] [address] Jan, Kidney disease N28.9 and Hyp ercholesterolemia E78.0 [place] [address] [address] Jan, HTN (hypertension) I10 ; Gou t M10.9 and Kidney disease N28.9 [place] [address] [address] Jan, Gout M10.9 and HTN (hyperten malgorzata) I10 [place] [address] [address] Nov, Gout M10.9 ; HTN (hypertensi on) I10 and Obesity E66.9 [facility] [address] [address] Oct, Acute gout of right foot, un specified cause M10.9 [place] [address] [address] Sep, [place] [address] [address] Sep, Hyperpotassemia 276.7 ; Hype rtensive heart and chronic kidney disease, benign, without heart failure and with chronic kidney disease stage I through stage IV, or unspecified 404.10 ; Dyslipidemia 272.4 ; Vitamin D deficiency 268.9 ; Chronic kidney disease, stage 3 585.3 ; Elevated fasting blood sugar 790.21 ; Secondary hyperparathyroidism (of renal origin) 588.81 ; Proteinuria 791.0 and Acidosis 276.2 [facility] [address] [place] [id number] [address] [place] [address] May, [facility] [address] [place] [id number] [address] [place] [phone] May, Hyperpotassemia 276.7 ; Hype rtensive heart and chronic kidney disease, benign, without heart failure and with chronic kidney disease stage I through stage IV, or unspecified 404.10 ; Dyslipidemia 272.4 ; Vitamin D deficiency 268.9 and Chronic kidney disease, stage 3 585.3 [facility] [address] [facility] [id number] [address] [place] [id number] Apr, Dental examination V72.2 [place] [address] [place] [id number] [address] [place] [address] March, Acidosis 276.2 ; Vitamin D d eficiency 268.9 ; Secondary hyperparathyroidism (of renal origin) 588.81 ; Dyslipidemia 272.4 ; Hyperpotassemia 276.7 ; Hypertensive heart and chronic kidney disease, benign, without heart failure and with chronic kidney disease stage I through stage IV, or unspecified 404.10 ; Elevated fasting blood sugar 790.21 ; Proteinuria 791.0 and Chronic kidney disease, stage 3 585.3 [place] [address] [place] [id number] [address] [place] [address] Feb, [place] [address] [place] [id number] [address] [place] [phone] Feb, [place] [address] [place] [id number] [address] [place] [address] Jan, [facility] [address] [place] [id number] [address] [place] [phone] Jan, [place] [address] [place] [id number] [address] [place] [address] Jan, [facility] [address] [id number] [address] [place] [address], [place] [address] Jan, [facility] [address] [id number] [address] [place] [address], [place] [address] Jan, [facility] [address] [id number] [address] [place] [address], [place] [address] Jan, [facility] [address] [id number] [address] [place] [address], [place] [address] Dec, [facility] [address] [id number] [address] [place] [address], [place] [address] Dec, [facility] [address] [id number] [address] [place] [address], [place] [address] Dec, [facility] [address] [id number] [address] [place] [address], [place] [address] Dec, [facility] [address] [id number] [address] [place] [address], [place] [address] Dec, [facility] [address] [id number] [address] [place] [address], [place] [address] Dec, [facility] [address] [id number] [address] [place] [address], [place] [address] Dec, [facility] [address] [id number] [address] [place] [address], [place] [address] Dec, [facility] [address] [id number] [address] [place] [address], [place] [address] Nov, [facility] [address] [id number] [address] [place] [address], [place] [address] Nov, [facility] [address] [id number] [address] [place] [address], [place] [address] Oct, [facility] [address] [id number] [address] [place] [address], [place] [address] Oct, [facility] [address] [id number] [facility] [place] [address] Oct, [facility] [address] [id number] [address] [place] [address], [place] [address] Oct, [facility] [address] [id number] [address] [place] [address], [place] [address] Oct, [facility] [address] [id number] [address] [place] [address], [place] [address] Jun, [facility] [address] [id number] [address] [place] [address], [place] [address] Jun, [facility] [address] [id number] [address] [place] [address], [place] [address] Jun, [facility] [address] [id number] [address] [place] [address], [place] [address] Jun, [facility] [address] [id number] [address] [place] [address], [place] [address] Apr, [facility] [address] [id number] [address] [place] [address], [place] [address] Apr, [facility] [address] [id number] [address] [place] [address], [place] [address] Apr, [facility] [address] [id number] [address] [place] [address], [place] [address] Apr, [facility] [address] [id number] [address] [place] [address], [place] [address] Apr, [facility] [address] [id number] [address] [place] [address], [place] [address] Apr, [facility] [address] [id number] [address] [place] [address], [place] [address] March, [facility] [address] [id number] [address] [place] [address], [place] [address] March, [facility] [address] [id number] [address] [place] [address], [place] [address] March, [facility] [address] [id number] [address] [place] [address], [place] [address] Jan, [facility] [address] [id number] [address] [place] [address], [place] [address] Jan, [facility] [address] [id number] [address] [place] [address], [place] [address] Jan, [facility] [address] [id number] [address] [place] [address], [place] [address] Jan, [facility] [address] [id number] [address] [place] [address], [place] [address] Dec, [facility] [address] [id number] [address] [place] [address], [place] [address] Dec, [facility] [address] [id number] [address] [place] [address], [place] [address] Dec, [facility] [address] [id number] [address] [place] [address], [place] [address] Dec, [facility] [address] [id number] [address] [place] [address], [place] [address] Oct, [facility] [address] [id number] [address] [place] [address], [place] [address] Oct, [facility] [address] [id number] [address] [place] [address], [place] [address] Sep, [facility] [address] [id number] [address] [place] [address] Sep, [facility] [address] [id number] [address] [place] [address], [place] [address] Sep, [facility] [address] [id number] [address] [place] [address], [place] [address] Sep, [facility] [address] [id number] [address] [place] [address], [place] [address] 15 Aug, 2013 [facility] [address] [id number] [address] [place] [id number] 14 Aug, 2013 [facility] [address] [id number] [address] [place] [address], [place] [address] 14 Aug, 2013 [facility] [address] [id number] [address] [place] [address], [place] [address] 13 Aug, 2013 [facility] [address] [id number] [address] [place] [address], [place] [address] 12 Aug, 2013 [facility] [address] [id number] [address] [place] [address], [place] [address] 11 Aug, 2013 [facility] [address] [id number] [address] [place] [address], [place] [address] 10 Aug, 2013 [facility] [address] [id number] [address] [place] [address], [place] [address] 10 Aug, 2013 [facility] [address] [id number] [address] [place] [address], [place] [address] 27 Jul, 2013 [facility] [address] [id number] [address] [place] [address], [place] [address] Jun, [facility] [address] [id number] [address] [place] [address], [place] [address] Jun, [facility] [address] [id number] [address] [place] [address], [place] [address] May, [facility] [address] [id number] [address] [place] [address], [place] [address] May, [facility] [address] [id number] [address] [place] [address], [place] [address] May, [facility] [address] [id number] [address] [place] [address], [place] [address] Apr, [facility] [address] [id number] [address] [place] [address], [place] [address] Apr, [facility] [address] [id number] [address] [place] [address], [place] [address] 05 Apr, 2013 [facility] [address] [id number] [address] [place] [address] Apr, [facility] [address] [id number] [address] [place] [address] March, [facility] [address] [id number] [address] [place] [address] March, [facility] [address] [id number] [address] [place] [address] Feb, [facility] [address] [id number] [address] [place] [address] Jan, [facility] [address] [id number] [address] [place] [address] Dec, [facility] [address] [facility] [id number] [address] [place] [address] Dec, [facility] [address] [facility] [id number] [address] [place] [address] Dec, [facility] [address] [id number] [address] [place] [address] Dec, [facility] [address] [facility] [id number] [address] [place] [address] Dec, IMMUNIZATIONS No Known Immunizations SOCIAL HISTORY Never Assessed REASON FOR VISIT PLAN OF CARE VITAL SIGNS MEDICATIONS Unknown Medications RESULTS No Results PROCEDURES No Known procedures INSTRUCTIONS MEDICATIONS ADMINISTERED No Known Medications MEDICAL (GENERAL) HISTORY Type Description Date Medical History HTN Medical History decreased kidney function Medical History gout Hospitalization History Infection
--- OUTSIDE RECORDS SUMMARY | 2020-04-09 18:36 | XMS REPORT ---
Author Author Yves ARZOLA Organization [facility] Address [address] [place] [address] Care Team Providers Care Gluing Machine Feeder Name Role Phone JENNI ARZOLA Unavailable PROBLEMS Type Condition ICD9-CM Code CIJ43-[id number] Code Onset Dates Condition S tatus SNOMED Code Problem Gout M10.9 Active 46841198 Problem Vitamin D deficiency E55.9 Active 22182354 Problem 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 Activ e 23487445 Problem Chronic kidney disease, stage IV (severe) N18.4 Active 849203645 Problem Gout involving toe of left f oot, unspecified cause, unspecified chronicity M10.9 Active 04840228 Problem Secondary hyperparathyroidism of renal origin N25. 81 Active 60329957 Problem Other hyperlipidemia E78.4 Active 45001314 Problem Anxiety F41.9 Active 17429375 Problem Chronic kidney disease, stage 3 (moderate) N18.3 Active 956121090 Problem Kidney disease N28.9 Active 48679 001 Problem GERD (gastroesophageal reflux disease) K21.9 Active 350605731 Problem Hypercholesterolemia E78.0 Active 24302136 Problem History of vitamin D deficiency Z86.39 Active 971077138 Problem Obesity E66.9 Active 990806819 Problem Edema R60.9 Active 637025017 Problem HTN (hypertension) I10 Active 3 [id number] ALLERGIES No Information ENCOUNTERS Encounter Location Date Diagnosis [facility] [address] [facility] [id number] [address] [place] [id number] Apr, [facility] [address] [facility] [id number] [address] [place] [phone] March, [facility] [address] [facility] [id number] [address] [place] [phone] March, HTN (hypertension) I10 ; Chr onic kidney disease, stage 3 (moderate) N18.3 and Anxiety F41.9 [facility] [address] [facility] [id number] [address] [place] [address] Feb, Chronic kidney disease, stag e IV (severe) N18.4 [facility] [address] [facility] [id number] [address] [place] [phone] Feb, [facility] [address] [facility] [id number] [address] [place] [address] Jan, Chronic kidney disease, stag e IV (severe) N18.4 [place] [address] [facility] [id number] [address] [place] [address] Jan, Chronic kidney disease, stag e IV (severe) N18.4 [place] [address] [place] [id number] [address] [place] [phone] Jan, HTN (hypertension) I10 and C hronic kidney disease, stage 3 (moderate) N18.3 [place] [address] [facility] [id number] [address] [place] [phone] Dec, [facility] [address] [place] [id number] [address] [place] [phone] Aug, [place] [address] [place] [id number] [address] [place] [phone] Aug, [facility] [address] [facility] [id number] [address] [place] [phone] Aug, Gout involving toe of left f oot, unspecified cause, unspecified chronicity M10.9 [facility] [address] [facility] [id number] [address] [place] [phone] Jul, Chronic kidney disease, stag e 3 (moderate) N18.3 [place] [address] [facility] [id number] [address] [place] [address] Jul, Chronic kidney disease, stag e 3 (moderate) N18.3 [place] [address] [place] [id number] [address] [place] [address] Jun, Hypercholesterolemia E78.0 [facility] [address] [facility] [id number] [address] [place] [address] Jun, Hypercholesterolemia E78.0 [facility] [address] [facility] [id number] [address] [place] [phone] May, [facility] [address] [facility] [id number] [address] [place] [address] Apr, Acute seasonal allergic rhin itis, unspecified trigger J30.2 [facility] [address] [facility] [id number] [address] [place] [phone] Apr, [facility] [address] [place] [id number] [place] [address] March, HTN (hypertension) I10 [facility] [address] [place] [id number] [address] [place] [phone] March, Pain in right shoulder M25.5 11 [facility] [address] [place] [id number] [address] [place] [phone] March, Hypercholesterolemia E78.0 [facility] [address] [facility] [id number] [address] [place] [address] Feb, Chronic kidney disease, stag e III (moderate) N18.3 [facility] [address] [facility] [id number] [address] [place] [address] Jan, Acute pain of right shoulder M25.511 and Muscle strain of right shoulder, initial encounter S46.911A [facility] [address] 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 [id number] [address] [place] [address] Oct, Acidosis E87.2 ; Vitamin D d [...] unspecified cause, unspecified chronicity, unspecified site M10.9 [facility] [id number] [place] [address] Oct, [facility] [address] [place] [id number] [address] [place] [address] Oct, Chronic kidney disease, stag e 3 (moderate) N18.3 ; HTN (hypertension) I10 ; Persistent proteinuria R80.1 and Vitamin D deficiency E55.9 [facility] [address] [facility] [id number] [address] [place] [address] Jul, Snoring R06.83 ; Obesity E66 .9 ; HTN (hypertension) I10 and Kidney disease N28.9 [facility] [address] [facility] [id number] [address] [place] [phone] Jul, [facility] [address] [facility] [id number] [address] [place] [address] Jun, Snoring R06.83 and HTN (hype rtension) I10 [place] [address] [address] Jun, Chronic kidney disease, stag e 3 (moderate) N18.3 [place] [address] [place] [id number] [place] [address] Jun, Chronic kidney disease, stag e 3 (moderate) N18.3 [place] [address] [address] Jan, [place] [address] [address] Jan, Kidney disease N28.9 and Hyp ercholesterolemia E78.0 [place] [address] [address] Jan, HTN (hypertension) I10 ; Gou t M10.9 and Kidney disease N28.9 [place] [address] [address] Jan, Gout M10.9 and HTN (hyperten malgorzata) I10 [place] [address] [address] Nov, Gout M10.9 ; HTN (hypertensi on) I10 and Obesity E66.9 [facility] [address] [address] Oct, Acute gout of right foot, un specified cause M10.9 [place] [address] [address] Sep, [place] [address] [address] Sep, Hyperpotassemia 276.7 ; Hype rtensive heart and chronic kidney disease, benign, without heart failure and with chronic kidney disease stage I through stage IV, or unspecified 404.10 ; Dyslipidemia 272.4 ; Vitamin D deficiency 268.9 ; Chronic kidney disease, stage 3 585.3 ; Elevated fasting blood sugar 790.21 ; Secondary hyperparathyroidism (of renal origin) 588.81 ; Proteinuria 791.0 and Acidosis 276.2 [facility] [address] [facility] [id number] [address] [place] [address] May, [facility] [address] [place] [id number] [address] [place] [address] May, Hyperpotassemia 276.7 ; Hype rtensive heart and chronic kidney disease, benign, without heart failure and with chronic kidney disease stage I through stage IV, or unspecified 404.10 ; Dyslipidemia 272.4 ; Vitamin D deficiency 268.9 and Chronic kidney disease, stage 3 585.3 [facility] [address] [facility] [id number] [address] [place] [id number] Apr, Dental examination V72.2 [facility] [address] [place] [id number] [address] [place] [address] March, Acidosis 276.2 ; Vitamin D d eficiency 268.9 ; Secondary hyperparathyroidism (of renal origin) 588.81 ; Dyslipidemia 272.4 ; Hyperpotassemia 276.7 ; Hypertensive heart and chronic kidney disease, benign, without heart failure and with chronic kidney disease stage I through stage IV, or unspecified 404.10 ; Elevated fasting blood sugar 790.21 ; Proteinuria 791.0 and Chronic kidney disease, stage 3 585.3 [facility] [address] [place] [id number] [address] [place] [address] Feb, [facility] [address] [place] [id number] [address] [place] [address] Feb, [facility] [address] [place] [id number] [address] [place] [address] Jan, [facility] [address] [place] [id number] [address] [place] [address] Jan, [facility] [address] [place] [id number] [address] [place] [address] Jan, [facility] [address] [id number] [address] [place] [address], [place] [address] Jan, [facility] [address] [id number] [address] [place] [address], [place] [address] Jan, [facility] [address] [id number] [address] [place] [address], [place] [address] Jan, [facility] [address] [id number] [address] [place] [address], [place] [address] Dec, 2014 [facility] [address] [id number] [address] [place] [address], [place] [address] Dec, 2014 [facility] [address] [id number] [address] [place] [address], [place] [address] Dec, 2014 [facility] [address] [id number] [address] [place] [address], [place] [address] Dec, [facility] [address] [id number] [address] [place] [address], [place] [address] Dec, 2014 [facility] [address] [id number] [address] [place] [address], [place] [address] Dec, [facility] [address] [id number] [address] [place] [address], [place] [address] Dec, [facility] [address] [id number] [address] [place] [address], [place] [address] Dec, [facility] [address] [id number] [address] [place] [phone] Nov, [facility] [address] [id number] [address] [place] [address], [place] [address] Nov, [facility] [address] [id number] [address] [place] [address], [place] [address] Oct, [facility] [address] [id number] [address] [place] [address], [place] [address] Oct, [facility] [address] [id number] [address] [place] [address], [place] [address] Oct, [facility] [address] [id number] [address] [place] [address], [place] [address] Oct, [facility] [address] [id number] [address] [place] [address], [place] [address] Oct, [facility] [address] [id number] [address] [place] [address], [place] [address] Jun, [facility] [address] [id number] [address] [place] [address], [place] [address] Jun, [facility] [address] [id number] [address] [place] [address], [place] [address] Jun, [facility] [address] [id number] [address] [place] [address], [place] [address] Jun, [facility] [address] [id number] [address] [place] [address], [place] [address] Apr, [facility] [address] [id number] [address] [place] [address], [place] [address] Apr, [facility] [address] [id number] [address] [place] [address], [place] [address] Apr, [facility] [address] [id number] [address] [place] [address], [place] [address] Apr, [facility] [address] [id number] [address] [place] [address], [place] [address] Apr, [facility] [address] [id number] [address] [place] [address], [place] [address] Apr, [facility] [address] [id number] [address] [place] [address], [place] [address] March, [facility] [address] [id number] [address] [place] [address], [place] [address] March, [facility] [address] [id number] [address] [place] [address], [place] [address] March, [facility] [address] [id number] [address] [place] [address], [place] [address] Jan, [facility] [address] [id number] [address] [place] [address], [place] [address] Jan, [facility] [address] [id number] [address] [place] [address], [place] [address] Jan, [facility] [address] [id number] [address] [place] [address], [place] [address] Jan, [facility] [address] [id number] [address] [place] [address], [place] [address] Dec, [facility] [address] [id number] [address] [place] [address], [place] [address] Dec, [facility] [address] [id number] [address] [place] [address], [place] [address] Dec, [facility] [address] [id number] [address] [place] [address], [place] [address] Dec, [facility] [address] [id number] [address] [place] [address], [place] [address] Oct, [facility] [address] [id number] [address] [place] [address] Oct, [facility] [address] [id number] [address] [place] [address], [place] [address] Sep, [facility] [address] [id number] [address] [place] [address] Sep, [facility] [address] [id number] [address] [place] [address], [place] [address] Sep, [facility] [address] [id number] [address] [place] [address], [place] [address] Sep, [facility] [address] [id number] [address] [place] [address], [place] [address] Aug, [facility] [address] [id number] [address] [place] [id number] 14 Aug, 2013 [facility] [address] [id number] [address] [place] [address], [place] [address] 14 Aug, 2013 [facility] [address] [id number] [address] [place] [address], [place] [address] 13 Aug, 2013 [facility] [address] [id number] [address] [place] [address], [place] [address] 12 Aug, 2013 [facility] [address] [id number] [address] [place] [address], [place] [address] 11 Aug, 2013 [facility] [address] [id number] [address] [place] [address], [place] [address] 10 Aug, 2013 [facility] [address] [id number] [address] [place] [address], [place] [address] 10 Aug, 2013 [facility] [address] [id number] [address] [place] [address], [place] [address] Jul, [facility] [address] [id number] [address] [place] [address], [place] [address] Jun, [facility] [address] [id number] [address] [place] [address], [place] [address] Jun, [facility] [address] [id number] [address] [place] [address], [place] [address] May, [facility] [address] [id number] [address] [place] [address], [place] [address] May, [facility] [address] [id number] [address] [place] [address], [place] [address] May, [facility] [address] [id number] [address] [place] [address], [place] [address] Apr, [facility] [address] [id number] [address] [place] [address], [place] [address] Apr, [facility] [address] [id number] [address] [place] [address], [place] [address] 05 Apr, 2013 [facility] [address] [id number] [address] [place] [address] Apr, [facility] [address] [id number] [address] [place] [address] March, [facility] [address] [id number] [address] [place] [address] March, [facility] [address] [id number] [address] [place] [address] Feb, [facility] [address] [id number] [address] [place] [address] Jan, [facility] [address] [facility] [id number] [address] [place] [address] Dec, [facility] [address] [facility] [id number] [address] [place] [address] Dec, [facility] [address] [facility] [id number] [address] [place] [address] Dec, [facility] [address] [id number] [address] [place] [address] Dec, [facility] [address] [facility] [id number] [address] [place] [address] Dec, IMMUNIZATIONS No Known Immunizations SOCIAL HISTORY Never Assessed REASON FOR VISIT Wanting an injection PLAN OF CARE VITAL SIGNS MEDICATIONS Unknown Medications RESULTS No Results PROCEDURES No Known procedures INSTRUCTIONS MEDICATIONS ADMINISTERED No Known Medications MEDICAL (GENERAL) HISTORY Type Description Date Medical History HTN Medical History decreased kidney function Medical History gout Hospitalization History Infection
== END 2020-04-09 17:39 | disposition home or self-care (01) ==
LOC: EDUNIT# 14:22 → ER 14:23
DX: R07.89 Other chest pain (principal); I12.0 Hypertensive chronic kidney disease with stage 5 chronic kidney disease or end stage renal disease; N18.5 Chronic kidney disease, stage 5; E66.9 Obesity, unspecified; Z79.82 Long term (current) use of aspirin; Z68.37 Body mass index [BMI] 37.0-37.9, adult; V85.5XXA Driver of special construction vehicle injured in nontraffic accident, initial encounter
CPT/HCPCS: 36415; 70450; 71045; 72125; 80053; 83735; 83874; 84484; 85025; 85610; 85730; 93005; 93041

== ENCOUNTER → 2020-04-19 | Outpatient (CLI) | payer MEDICARE ==
[2020-04-19 07:11] LABS: HEMOGLOBIN 13.4 G/DL (13.3-17.7); MEAN PLATELET VOLUME 12.5 FL (7.4-10.4); RED CELL DISTRIBUTION WIDTH 13.9 % (10.0-14.5); WHITE BLOOD COUNT 11.3 10^3/uL (4.3-11.0)
[2020-04-19 07:35] LABS: CREATININE SERUM 5.81 MG/DL (0.60-1.30); POTASSIUM 5.4 MMOL/L (3.6-5.0); URIC ACID 7.9 MG/DL (2.6-7.2)
== END ==
LOC: LAB 06:49
PROVIDERS: ATTEND Internal Medicine Nephrology
DX: N25.81 Secondary hyperparathyroidism of renal origin (principal); N18.5 Chronic kidney disease, stage 5; I12.0 Hypertensive chronic kidney disease with stage 5 chronic kidney disease or end stage renal disease
CPT/HCPCS: 36415; 80069; 82306; 82570; 83970; 84156; 84550; 85027

== ENCOUNTER → 2020-06-23 | Outpatient (CLI) | payer MEDICARE ==
[2020-06-23 10:02] LABS: HEMOGLOBIN 13.1 G/DL (13.3-17.7); MEAN PLATELET VOLUME 12.1 FL (7.4-10.4); RED CELL DISTRIBUTION WIDTH 14.1 % (10.0-14.5); WHITE BLOOD COUNT 12.3 10^3/uL (4.3-11.0)
[2020-06-23 10:10] LABS: ALBUMIN 4.1 GM/DL (3.2-4.5)
[2020-06-23 10:11] LABS: POTASSIUM 5.4 MMOL/L (3.6-5.0)
[2020-06-23 10:12] LABS: CALCIUM 8.7 MG/DL (8.5-10.1)
[2020-06-23 10:16] LABS: PHOSPHORUS 5.2 MG/DL (2.3-4.7)
[2020-06-23 10:17] LABS: CREATININE SERUM 6.01 MG/DL (0.60-1.30)
[2020-06-23 10:19] LABS: URIC ACID 7.6 MG/DL (2.6-7.2)
== END ==
LOC: LAB 09:38
PROVIDERS: ATTEND Internal Medicine Nephrology
DX: E87.5 Hyperkalemia (principal); I13.11 Hypertensive heart and chronic kidney disease without heart failure, with stage 5 chronic kidney disease, or end stage renal disease; N18.5 Chronic kidney disease, stage 5; E87.2 Acidosis; N52.1 Erectile dysfunction due to diseases classified elsewhere; M10.079 Idiopathic gout, unspecified ankle and foot
CPT/HCPCS: 36415; 80069; 82306; 82570; 83970; 84156; 84550; 85027

== ENCOUNTER → 2020-07-25 | Outpatient (CLI) | payer MEDICARE ==
[2020-07-25 07:01] LABS: BASOPHILS # (AUTO) 0.1 10^3/uL (0.0-0.1); BASOPHILS % (AUTO) 0 % (0-10); EOSINOPHILS # (AUTO) 0.6 10^3/uL (0.0-0.3); EOSINOPHILS % (AUTO) 5 % (0-10); HEMATOCRIT 38 % (40-54); HEMOGLOBIN 12.3 G/DL (13.3-17.7); LYMPHOCYTES # (AUTO) 3.2 X 10^3 (1.0-4.0); LYMPHOCYTES % (AUTO) 26 % (12-44); MEAN CORPUSCULAR HEMOGLOBIN 31 PG (25-34); MEAN CORPUSCULAR HGB CONC 33 G/DL (32-36); MEAN CORPUSCULAR VOLUME 95 FL (80-99); MEAN PLATELET VOLUME 11.7 FL (7.4-10.4); MONOCYTES # (AUTO) 1.3 X 10^3 (0.0-1.0); MONOCYTES % (AUTO) 11 % (0-12); NEUTROPHILS # (AUTO) 7.4 X 10^3 (1.8-7.8); NEUTROPHILS % (AUTO) 59 % (42-75); PLATELET COUNT 172 10^3/uL (130-400); WHITE BLOOD COUNT 12.7 10^3/uL (4.3-11.0)
[2020-07-25 07:17] LABS: ALBUMIN 4.1 GM/DL (3.2-4.5); CALCIUM 8.6 MG/DL (8.5-10.1); CREATININE SERUM 6.18 MG/DL (0.60-1.30); PHOSPHORUS 5.3 MG/DL (2.3-4.7); POTASSIUM 5.2 MMOL/L (3.6-5.0)
== END ==
LOC: LAB 06:40
PROVIDERS: ATTEND Internal Medicine Nephrology
DX: I13.11 Hypertensive heart and chronic kidney disease without heart failure, with stage 5 chronic kidney disease, or end stage renal disease (principal); I50.32 Chronic diastolic (congestive) heart failure; N18.5 Chronic kidney disease, stage 5; E55.9 Vitamin D deficiency, unspecified; N02.8 Recurrent and persistent hematuria with other morphologic changes; E83.9 Disorder of mineral metabolism, unspecified
CPT/HCPCS: 36415; 80069; 82306; 82570; 83970; 84156; 84550; 85025

== ENCOUNTER → 2020-09-19 | Outpatient (CLI) | payer MEDICARE ==
[2020-09-19 11:02] LABS: HEMOGLOBIN 12.2 g/dL (13.3-17.7); MEAN PLATELET VOLUME 12.3 fL (9.0-12.2); WHITE BLOOD COUNT 14.4 10^3/uL (4.3-11.0)
[2020-09-19 11:17] LABS: CALCIUM 9.2 MG/DL (8.5-10.1); CREATININE SERUM 8.42 MG/DL (0.60-1.30); PHOSPHORUS 7.3 MG/DL (2.3-4.7); POTASSIUM 4.4 MMOL/L (3.6-5.0); URIC ACID 11.6 MG/DL (2.6-7.2)
== END ==
LOC: LAB 10:24
PROVIDERS: ATTEND Internal Medicine Nephrology
DX: I13.11 Hypertensive heart and chronic kidney disease without heart failure, with stage 5 chronic kidney disease, or end stage renal disease (principal); N18.5 Chronic kidney disease, stage 5; M10.479 Other secondary gout, unspecified ankle and foot; E87.5 Hyperkalemia; E83.9 Disorder of mineral metabolism, unspecified; R80.9 Proteinuria, unspecified
CPT/HCPCS: 36415; 80069; 82306; 82570; 83970; 84156; 84550; 85027

== ENCOUNTER 2021-01-09 12:24 | Emergency (ER) | payer MEDICARE ==
[~2021-01-09] VITALS: Ht 177 cm; Wt 123.0 kg
--- NOTE | 2021-01-09 12:58 | ED General ---
General Chief Complaint: Respiratory Problems Stated Complaint: SOB,COUGH Source of Information: Patient Exam Limitations: No Limitations History of Present Illness Date Seen by Provider: Jan 09, 2021 Time Seen by Provider: 12:56 Initial Comments To ER with reports of shortness of breath and cough for 3 days. He has had hemoptysis. He went to pending sale to [facility] initially and had a pulse oximeter reading of 85. Refused to come by ambulance and on arrival here he was 83% on room air. States he does not smoke. He denies any chest pain fevers or chills. Denies any nausea or vomiting though he does have some upper abdominal pain every time he eats for about a year. 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 Linder tomorrow. Timing/Duration: 2-3 Days Severity: Moderate Associated Systoms: Denies Symptoms Allergies and Home Medications Allergies Coded Allergies: No Known Drug Allergies (Unverified , 11/27/13) Home Medications Amlodipine Besylate 10 Mg Tablet, 10 MG PO DAILY Prescribed by: GT MCLEAN on 12/13/17 154 Celecoxib 200 Mg Capsule, 200 MG PO UD PRN for PAIN Prescribed by: ROXANN MCKENZIE on 09/22/16 174 Methocarbamol 750 Mg Tablet, 1,500 MG PO UD PRN for muscle spasms Prescribed by: ROXANN MCKENZIE on 09/22/161742 Patient Home Medication List Home Medication List Reviewed: Yes Review of Systems Review of Systems Constitutional: see HPI; No chills, No fever EENTM: see HPI Respiratory: cough, hemoptysis Cardiovascular: no symptoms reported Genitourinary: no symptoms reported Musculoskeletal: no symptoms reported Skin: no symptoms reported Psychiatric/Neurological: No Symptoms Reported Hematologic/Lymphatic: No Symptoms Reported Immunological/Allergic: no symptoms reported Past Gtnzuvg-Ehjebr-Cuznnk Hx Patient Social History 2nd Hand Smoke Exposure: No Recent Hopitalizations: No Immunizations Up To Date Tetanus Booster (TDap): Unknown PED Vaccines UTD: Yes Seasonal Allergies Seasonal Allergies: No Past Medical History Surgeries: No Respiratory: No Cardiac: Yes Hypertension Neurological: No Genitourinary: No Gastrointestinal: Yes Gastroesophageal Reflux Musculoskeletal: No Endocrine: Yes (obesity) HEENT: Yes Tinnitis Cancer: No Psychosocial: No Integumentary: No Blood Disorders: No Family Medical History No Pertinent Family Hx Physical Exam Vital Signs Vital Signs - First Documented 01/09/21 12:40 Temp 36.3 Pulse 84 Resp 20 B/P (MAP) 144/73 (96) Pulse Ox 83 O2 Delivery Nasal Cannula O2 Flow Rate 2.00 Capillary Refill : Height, Weight, BMI Height: 5'10.00" Weight: 308lbs. oz. 139.291688tg; 37.00 BMI Method:Stated General Appearance: No Apparent Distress, WD/WN, Chronically ill, Obese, Other (Alert and oriented speaks in full sentences 92% on 2 L) Eyes: Bilateral Eye Normal Inspection, Bilateral Eye PERRL, Bilateral Eye EOMI Respiratory: Normal Breath Sounds, No Accessory Muscle Use, No Respiratory Distress Cardiovascular: Regular Rate, Rhythm, Normal Peripheral Pulses Gastrointestinal: Normal Bowel Sounds, Non Tender, Soft Extremity: Normal Capillary Refill, Normal Inspection Neurologic/Psychiatric: Alert, Oriented x3 Skin: Normal Color, Warm/Dry Progress/Results/Core Measures Suspected Sepsis SIRS Temperature: Pulse: Respiratory Rate: Laboratory Tests 01/09/21 12:50: White Blood Count 9.8 Blood Pressure / Mean: Laboratory Tests 01/09/21 12:50: Creatinine 9.66H, INR Comment 1.1, Platelet Count 265, Total Bilirubin 0.7 Results/Orders Lab Results Laboratory Tests Test 01/09/21 12:50 01/09/21 13:10 Range/Units White Blood Count 9.8 4.3-11.0 10^3/uL Red Blood Count 3.52 L 4.30-5.52 10^6/uL Hemoglobin 10.2 L 13.3-17.7 g/dL Hematocrit 32 L 40-54 % Mean Corpuscular Volume 90 80-99 fL Mean Corpuscular Hemoglobin 29 25-34 pg Mean Corpuscular Hemoglobin Concent 32 32-36 g/dL Red Cell Distribution Width 14.8 H 10.0-14.5 % Platelet Count 265 130-400 10^3/uL Mean Platelet Volume 11.6 9.0-12.2 fL Immature Granulocyte % (Auto) 2 % Neutrophils (%) (Auto) 61 42-75 % Lymphocytes (%) (Auto) 24 12-44 % Monocytes (%) (Auto) 13 H 0-12 % Eosinophils (%) (Auto) 1 0-10 % Basophils (%) (Auto) 0 0-10 % Neutrophils # (Auto) 5.9 1.8-7.8 10^3/uL Lymphocytes # (Auto) 2.3 1.0-4.0 10^3/uL Monocytes # (Auto) 1.2 H 0.0-1.0 10^3/uL Eosinophils # (Auto) 0.1 0.0-0.3 10^3/uL Basophils # (Auto) 0.0 0.0-0.1 10^3/uL Immature Granulocyte # (Auto) 0.2 H 0.0-0.1 10^3/uL Prothrombin Time 14.9 H 12.2-14.7 SEC INR Comment 1.1 0.8-1.4 D-Dimer 1.40 H 0.00-0.49 UG/ML Sodium Level 135 135-145 MMOL/L Potassium Level 3.9 3.6-5.0 MMOL/L Chloride Level 93 L 98-107 MMOL/L Carbon Dioxide Level 24 21-32 MMOL/L Anion Gap 18 H 5-14 MMOL/L Blood Urea Nitrogen 114 *H 7-18 MG/DL Creatinine 9.66 H 0.60-1.30 MG/DL Estimat Glomerular Filtration Rate 5 BUN/Creatinine Ratio 12 Glucose Level 128 H 70-105 MG/DL Calcium Level 8.9 8.5-10.1 MG/DL Corrected Calcium 9.0 8.5-10.1 MG/DL Total Bilirubin 0.7 0.1-1.0 MG/DL Aspartate Amino Transf (AST/SGOT) 30 5-34 U/L Alanine Aminotransferase (ALT/SGPT) 23 0-55 U/L Alkaline Phosphatase 49 40-136 U/L C-Reactive Protein High Sensitivity 18.40 H 0.00-0.50 MG/DL Total Protein 7.7 6.4-8.2 GM/DL Albumin 3.9 3.2-4.5 GM/DL Procalcitonin 0.66 H <0.10 NG/ML Coronavirus 2019 ([facility]) Negative Negative Blood Gas Puncture Site RIGHT RADIAL Blood Gas Patient Temperature 37 Arterial Blood pH 7.46 H 7.37-7.43 Arterial Blood Partial Pressure CO2 38 35-45 MMHG Arterial Blood Partial Pressure O2 78 L 79-93 MMHG Arterial Blood HCO3 27 23-27 MMOL/L Arterial Blood Total CO2 27.7 21.0-31.0 MMOL/L Arterial Blood Oxygen Saturation 94 94-100 % Arterial Blood Base Excess 2.9 H -2.5-2.5 MMOL/L Alexandre Test POSITIVE Blood Gas Ventilator Setting NO Blood Gas Inspired Oxygen RA My Orders Orders - PATRICIA ONEAL APRN Cbc With Automated Diff (01/09/21 12:48) Comprehensive Metabolic Panel (01/09/21 12:48) Ua Culture If Indicated (01/09/21 12:48) Protime With Inr (01/09/21 12:48) Procalcitonin (Pct) (01/09/21 12:48) Hs C Reactive Protein (01/09/21 12:48) Chest 1 View, Ap/Pa Only (01/09/21 12:48) Fibrin Degradation Products (01/09/21 12:48) Ed Iv/Invasive Line Start (01/09/21 12:48) Arterial Blood Gas (01/09/21 13:12) Coronavirus Sars-Cov-2 So 2018 (01/09/21 13:56) Blood Culture (01/09/21 14:07) Cefepime Injection (Maxipime Injection) (01/09/21 14:15) Vital Signs/I&O 01/09/21 01/09/21 12:40 12:40 Temp 36.3 Pulse 84 Resp 20 B/P (MAP) 144/73 (96) Pulse Ox 83 83 O2 Delivery Nasal Cannula Room Air O2 Flow Rate 2.00 Capillary Refill : Diagnostic Imaging Diagonstic Imaging: Xray Plain Films/CT/US/NM/MRI: chest Comments NAME: [facility] REC#: [id number] PT STATUS: REG ER : 1950 PHYSICIAN: PATRICIA ONEAL APRN ADMIT DATE: 01/09/21/ER Draft Date of Exam:01/09/21 CHEST 1 VIEW, AP/PA ONLY INDICATION: Hemoptysis, shortness of breath. Portable chest at 1:39 p.m. There are dense opacities of varying sizes present in both lungs. These could be infiltrates but masses cannot be excluded. The heart appears enlarged. IMPRESSION: Multifocal opacities in the lungs. Differential considerations would include Covid pneumonia versus lung metastases. Dictated on workstation # [id number] Dict: 01/09/21 1338 Trans: 01/09/21 1343 IMS [id number] Interpreted by: EDUARDO SEWELL MD Electronically signed by: Departure Communication (Admissions) Family Conversation 1420-I spoke with Dr. Marshall at [facility] agrees to accept the patient since we do not have nephrology here. Patient is 92% on 2 L of oxygen when he wears it. He initially did not want to go to [place] because "they killed 2 of my buddies" but his convinced him to go and that [place] did not kill his buddies. I did give 500mg IV cefepime based on renal function. NAME: [facility] REC#: [id number] PT STATUS: REG ER : 1950 PHYSICIAN: PATRICIA ONEAL APRN ADMIT DATE: 01/09/21/ER Draft Date of Exam:01/09/21 CHEST 1 VIEW, AP/PA ONLY INDICATION: Hemoptysis, shortness of breath. Portable chest at 1:39 p.m. There are dense opacities of varying sizes present in both lungs. These could be infiltrates but masses cannot be excluded. The heart appears enlarged. IMPRESSION: Multifocal opacities in the lungs. Differential considerations would include Covid pneumonia versus lung metastases. Dictated on workstation # [id number] Dict: 01/09/21 1338 Trans: 01/09/21 1343 [facility] [id number] Interpreted by: EDUARDO SEWELL MD Electronically signed by: Impression Primary Impression: Hypoxia Additional Impressions: Hemoptysis Pulmonary infiltrate Disposition: SHT-TRM HOSP Condition: Stable Transfer Transfer Reason: Exceeds level of care Time Spoke to Accepting Phy: 14:21 Departure-Patient Inst. Decision time for Depature: 14:21 Referrals: [facility] (PCP) Primary Care Physician JENNI ARZOLA (Family) Primary Care Physician PATRICIA ONEAL APRN Jan 09, 2021 12:58
[2021-01-09 13:09] LABS: BASOPHILS % (AUTO) 0 % (0-10); EOSINOPHILS # (AUTO) 0.1 10^3/uL (0.0-0.3); EOSINOPHILS % (AUTO) 1 % (0-10); HEMATOCRIT 32 % (40-54); HEMOGLOBIN 10.2 g/dL (13.3-17.7); LYMPHOCYTES # (AUTO) 2.3 10^3/uL (1.0-4.0); LYMPHOCYTES % (AUTO) 24 % (12-44); MEAN CORPUSCULAR HEMOGLOBIN 29 pg (25-34); MEAN CORPUSCULAR HGB CONC 32 g/dL (32-36); MEAN CORPUSCULAR VOLUME 90 fL (80-99); MEAN PLATELET VOLUME 11.6 fL (9.0-12.2); MONOCYTES # (AUTO) 1.2 10^3/uL (0.0-1.0); MONOCYTES % (AUTO) 13 % (0-12); NEUTROPHILS # (AUTO) 5.9 10^3/uL (1.8-7.8); NEUTROPHILS % (AUTO) 61 % (42-75); PLATELET COUNT 265 10^3/uL (130-400); WHITE BLOOD COUNT 9.8 10^3/uL (4.3-11.0)
[2021-01-09 13:14] LABS: ALBUMIN 3.9 GM/DL (3.2-4.5); POTASSIUM 3.9 MMOL/L (3.6-5.0)
[2021-01-09 13:15] LABS: CALCIUM 8.9 MG/DL (8.5-10.1)
[2021-01-09 13:16] LABS: TOTAL PROTEIN 7.7 GM/DL (6.4-8.2)
[2021-01-09 13:16] LABS: ABG BASE EXCESS 2.9 MMOL/L (-2.5-2.5); ABG OXYGEN SATURATION 94 % (94-100); ABG PCO2 38 MMHG (35-45); ABG PH 7.46 (7.37-7.43); ABG PO2 78 MMHG (79-93); ABG TCO2 27.7 MMOL/L (21.0-31.0)
[2021-01-09 13:17] LABS: ALLENS TEST POSITIVE; INSPIRED O2 RA; PATIENT TEMP 37; VENTILATOR NO
[2021-01-09 13:18] LABS: BILIRUBIN,TOTAL 0.7 MG/DL (0.1-1.0)
[2021-01-09 13:20] LABS: CREATININE SERUM 9.66 MG/DL (0.60-1.30)
[2021-01-09 13:23] LABS: FIBRIN DEGRADATION PRODUCTS 1.4 UG/ML (0.00-0.49); INR 1.1 (0.8-1.4); PROTHROMBIN TIME PATIENT 14.9 SEC (12.2-14.7)
--- NOTE | 2021-01-09 13:45 | Diagnostic Imaging Report ---
INDICATION: Hemoptysis, shortness of breath. Portable chest at 1:39 p.m. There are dense opacities of varying sizes present in both lungs. These could be infiltrates but masses cannot be excluded. The heart appears enlarged. IMPRESSION: Multifocal opacities in the lungs. Differential considerations would include Covid pneumonia versus lung metastases. Dictated by: Dictated on workstation # [id number]
[2021-01-09] MEDS ORDERED: CEFEPIME INJECTION 500 MG in NS (IVPB) 50 ML IV SCH (14:15)
[2021-01-09 14:58] LABS: BILIRUBIN,URINE NEGATIVE (NEGATIVE); CLARITY,URINE SL CLOUDY; COLOR,URINE YELLOW; GLUCOSE, URINE (UA) NEGATIVE (NEGATIVE); KETONES,URINE NEGATIVE (NEGATIVE); LEUKOCYTE ESTERASE ,URINE NEGATIVE (NEGATIVE); NITRITE,URINE NEGATIVE (NEGATIVE); PH,URINE 5.5 (5-9); PROTEIN,URINE 2+ (NEGATIVE)
[2021-01-09 15:17] LABS: WBC,URINE RARE /HPF
[2021-01-09 15:18] LABS: BACTERIA,URINE NEGATIVE /HPF; GRANULAR CASTS,URINE 0-2 /LPF; SQUAMOUS EPITHELIAL CELL,UR 0-2 /HPF
[2021-01-09 15:19] LABS: AMORPHOUS SEDIMENT,UR RARE AMOR URATES /LPF
[2021-01-09 15:36] VITALS: BP 163/82
== END 2021-01-09 15:36 | disposition short-term general hospital (02) ==
LOC: EDUNIT# 12:24 → ER 12:26
DX: R09.02 Hypoxemia (principal); R04.2 Hemoptysis; R91.8 Other nonspecific abnormal finding of lung field; I10 Essential (primary) hypertension; E66.9 Obesity, unspecified; Z20.822 Contact with and (suspected) exposure to COVID-19; Z68.37 Body mass index [BMI] 37.0-37.9, adult
CPT/HCPCS: 71045; 80053; 81000; 82805; 84145; 85025; 85379; 85610; 86141; 87040; U0002; 36415; 87635

== ENCOUNTER 2021-03-10 22:15 | Emergency (ER) | payer MEDICARE ==
[~2021-03-10] VITALS: Ht 177.8 cm; Wt 125.2 kg
[2021-03-10] MEDS ORDERED: NITROGLYCERIN 2% OINT 1 GM UNIT DOSE PACKET TOP ONE (22:30)
[2021-03-10] MEDS ORDERED: ASPIRIN 81 MG CHEW (CHILDREN'S ASA) PO ONE (22:30)
[2021-03-10 22:31] LABS: BASOPHILS # (AUTO) 0.1 10^3/uL (0.0-0.1); BASOPHILS % (AUTO) 0 % (0-10); EOSINOPHILS % (AUTO) 0 % (0-10); HEMATOCRIT 41 % (40-54); LYMPHOCYTES # (AUTO) 2.8 10^3/uL (1.0-4.0); LYMPHOCYTES % (AUTO) 18 % (12-44); MEAN CORPUSCULAR HEMOGLOBIN 31 pg (25-34); MEAN CORPUSCULAR HGB CONC 32 g/dL (32-36); MEAN CORPUSCULAR VOLUME 98 fL (80-99); MONOCYTES # (AUTO) 0.4 10^3/uL (0.0-1.0); MONOCYTES % (AUTO) 3 % (0-12); NEUTROPHILS # (AUTO) 11.7 10^3/uL (1.8-7.8); NEUTROPHILS % (AUTO) 78 % (42-75); PLATELET COUNT 312 10^3/uL (130-400); WHITE BLOOD COUNT 15.1 10^3/uL (4.3-11.0)
[2021-03-10] MEDS: NITROGLYCERIN 0.4 MG SL TABS BTL 25'S SL PRN ×3 (22:35→22:46)
[2021-03-10 22:42] LABS: ALBUMIN 4.3 GM/DL (3.2-4.5); POTASSIUM 5.7 MMOL/L (3.6-5.0)
--- NOTE | 2021-03-10 22:42 | ED Chest Pain ---
General Chief Complaint: Chest Pain Stated Complaint: CHEST PAIN Source: patient (EXTREMELY POOR AND DIFFICULT HISTORIAN), spouse History of Present Illness Date Seen by Provider: March 10, 2021 Time Seen by Provider: 22:17 Initial Comments PT ARRIVES VIA POV FROM HOME WITH -- GIVES ALL INFORMATION PT IS AN EXTREMELY POOR HISTORIAN AND IS SOMEWHAT CONFUSED AND HAS DIFFICULTY FOLLOWING COMMANDS-- STATES THIS IS ALL NORMAL FOR HIM. C/O CHEST PAIN PAIN BEGAN A COUPLE OF HOURS AGO, BUT WAS "MILD" PER , THEN GOT MUCH WORSE TOOK 1 NTG JUST PRIOR TO ARRIVAL--PT IS UNABLE TO STATE IF IT HELPED OR NOT + SWEATS NO NAUSEA/VOMITING NO INCREASE IN CHRONIC SHORTNESS OF BREATH NO SWELLING PT IS UNABLE TO RATE PAIN NO FEVER OR RECENT ILLNESS DENIES ANY COVID-19 SYMPTOMS PT WAS STARTED ON DIALYSIS 1 1/2 MONTHS AGO--GETS IT THURSDAY/THURSDAY/THURSDAY AND NO MISSED APPOINTMENTS OR SHORTENED SESSIONS STATES IS FROM HYPERTENSION. PT IS NOT DIABETIC. STATES "THEY SAID HE ONLY HAD 2 WEEKS TO LIVE IF HE DIDN'T GET STARTED ON DIALYSIS" PT WITH SEVERE CAD AND POSSIBLY HAD 'MILD HEART ATTACK" IN JANUARY--WAS SEEN AT [facility] STATES THEY DID A CARDIAC CATH AND HAD SEVERE DISEASE--"TOO BAD" TO DO ANY KIND OF INTERVENTION. STATES THEY WERE TOLD HE NEEDED TRIPLE BYPASS, BUT HE WASN'T IN GOOD ENOUGH CONDITION TO HAVE ANY SURGERY. 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 AT [facility] AND [facility] Allergies and Home Medications Allergies Coded Allergies: No Known Drug Allergies (Unverified , 11/27/13) Home Medications Amlodipine Besylate 10 Mg Tablet, 10 MG PO DAILY Prescribed by: GT MCLEAN on 12/13/17 1548 Celecoxib 200 Mg Capsule, 200 MG PO UD PRN for PAIN Prescribed by: ROXANN MCKENZIE on 09/22/16 174 Methocarbamol 750 Mg Tablet, 1,500 MG PO UD PRN for muscle spasms Prescribed by: ROXANN MCKENZIE on 09/22/161742 Patient Home Medication List Home Medication List Reviewed: Yes Review of Systems Review of Systems Constitutional: diaphoresis Respiratory: Denies Shortness of Air Cardiovascular: Chest Pain Psychiatric/Neurological: See HPI Past Xqfnkjp-Hyqzln-Ouwnfn Hx Past Med/Social Hx: Reviewed and Corrections made Patient Social History Alcohol Use: Denies Use Drug of Choice: DENIES Smoking Status: Never a Smoker 2nd Hand Smoke Exposure: No Recent Hopitalizations: No Immunizations Up To Date Tetanus Booster (TDap): Unknown PED Vaccines UTD: Yes Seasonal Allergies Seasonal Allergies: No Past Medical History Surgeries: Yes (CARDIAC CATH;R CENTRAL LINE/DIALYSIS;L ARM AV FISTULA/DIALYSIS GRAFT02/2021) Dialysis Respiratory: No Cardiac: Yes (CHF) Cardiomyopathy, Coronary Artery Disease, Heart Attack, High Cholesterol, Hypertension Neurological: Yes (POOR MEMORY/COGNITIVE IMPAIRMENT) Genitourinary: Yes (ESRD-PLACED ON DIALYSIS 01/2021) Renal Failure, Dialysis Gastrointestinal: Yes Gastroesophageal Reflux Musculoskeletal: No Endocrine: Yes (MORBID OBESITY) HEENT: Yes Tinnitis Cancer: No Psychosocial: No Integumentary: No Blood Disorders: No Family Medical History No Pertinent Family Hx Physical Exam Vital Signs Vital Signs - First Documented 03/10/21 03/11/21 22:18 00:30 Temp 36.2 Pulse 106 Resp 19 B/P (MAP) 195/118 (143) O2 Flow Rate 2.00 Capillary Refill : Height, Weight, BMI Height: 5'10.00" Weight: 308lbs. oz. 139.570015vo; 39.00 BMI Method:Stated General Appearance: Anxious, Obese (MORBIDLY ), Other (PT DOES NOT APPEAR IN ACUTE DISTRESS, BUT IS CONSTANTLY MOVING, GROANING/GRUNTING/EXAGGERATED SIGHING. MUCH DIFFICULTY ANSWERING QUESTIONS AND FOLLOWING COMMANDS ( NORMAL, PER ) ; BELLIGERENT AND UNCOOPERATIVE IN GENERAL. ) Neck: Normal Inspection Respiratory: Normal Breath Sounds, No Accessory Muscle Use, No Respiratory Distress Cardiovascular: Regular Rate, Rhythm, No Murmur Gastrointestinal: Non Tender, Other (OBESE--UNABLE TO DETERMINE IF ANY MASSES OR ORGANOMEGALY OR ASCITES ARE PRESENT) Extremity: Normal Capillary Refill, Non Tender, No Pedal Edema Neurologic/Psychiatric: Alert, Other (PT IS MODERATELY CONFUSED. VERY DIFFICULT TO DETERMINE DEGREE OF ORIENTATION--KNOWS HE IS AT HOSPITAL, KNOWS , GROSSLY AWARE OF SITUATION. DISORIENTED TO TIME. CONFUSED FREQUENTLY AND HAS DIFFICULTY FOLLOWING COMMANDS AND STAYING ON TASK, SPEECH NON-SENSICAL AND NON-RELATIVE FREQUENTLY. SPEECH IS NOT SLURRED. DOES MOVE ALL EXTREMEITIES EQUALLY. ) Skin: Normal Color, Warm/Dry Progress/Results/Core Measures Results/Orders Lab Results Laboratory Tests Test 03/10/21 00:00 03/10/21 22:25 03/11/21 00:32 Range/Units Coronavirus 2019 ([facility]) Not Detected Not Detecte White Blood Count 15.1 H 4.3-11.0 10^3/uL Red Blood Count 4.22 L 4.30-5.52 10^6/uL Hemoglobin 13.0 L 13.3-17.7 g/dL Hematocrit 41 40-54 % Mean Corpuscular Volume 98 80-99 fL Mean Corpuscular Hemoglobin 31 25-34 pg Mean Corpuscular Hemoglobin Concent 32 32-36 g/dL Red Cell Distribution Width 16.2 H 10.0-14.5 % Platelet Count 312 130-400 10^3/uL Mean Platelet Volume 11.0 9.0-12.2 fL Immature Granulocyte % (Auto) 1 % Neutrophils (%) (Auto) 78 H 42-75 % Lymphocytes (%) (Auto) 18 12-44 % Monocytes (%) (Auto) 3 0-12 % Eosinophils (%) (Auto) 0 0-10 % Basophils (%) (Auto) 0 0-10 % Neutrophils # (Auto) 11.7 H 1.8-7.8 10^3/uL Lymphocytes # (Auto) 2.8 1.0-4.0 10^3/uL Monocytes # (Auto) 0.4 0.0-1.0 10^3/uL Eosinophils # (Auto) 0.0 0.0-0.3 10^3/uL Basophils # (Auto) 0.1 0.0-0.1 10^3/uL Immature Granulocyte # (Auto) 0.1 0.0-0.1 10^3/uL Neutrophils % (Manual) 76 % Lymphocytes % (Manual) 22 % Monocytes % (Manual) 2 % Blood Morphology Comment NORMAL Prothrombin Time 14.4 12.2-14.7 SEC INR Comment 1.1 0.8-1.4 Activated Partial Thromboplast Time 35 24-35 SEC D-Dimer 1.40 H 0.00-0.49 UG/ML Sodium Level 133 L 135-145 MMOL/L Potassium Level 5.7 H 3.6-5.0 MMOL/L Chloride Level 90 L 98-107 MMOL/L Carbon Dioxide Level 19 L 21-32 MMOL/L Anion Gap 24 H 5-14 MMOL/L Blood Urea Nitrogen 93 H 7-18 MG/DL Creatinine 12.89 H 0.60-1.30 MG/DL Estimat Glomerular Filtration Rate 4 BUN/Creatinine Ratio 7 Glucose Level 398 H 70-105 MG/DL Calcium Level 10.6 H 8.5-10.1 MG/DL Corrected Calcium 10.4 H 8.5-10.1 MG/DL Magnesium Level 2.9 H 1.6-2.4 MG/DL Total Bilirubin 0.4 0.1-1.0 MG/DL Aspartate Amino Transf (AST/SGOT) 14 5-34 U/L Alanine Aminotransferase (ALT/SGPT) 10 0-55 U/L Alkaline Phosphatase 70 40-136 U/L Total Creatine Kinase 47 30-200 U/L Creatine Kinase MB 3.7 <6.6 NG/ML Myoglobin 215.9 H 10.0-92.0 NG/ML Troponin I 0.085 H <0.028 NG/ML B-Type Natriuretic Peptide 1100.4 H <100.0 PG/ML Total Protein 8.7 H 6.4-8.2 GM/DL Albumin 4.3 3.2-4.5 GM/DL Amylase Level 105 25-125 U/L Lipase 82 H 8-78 U/L Glucometer 253 H 70-110 MG/DL My Orders Orders - GUERITA BUTLER DO Cbc With Automated Diff (03/10/21 22:15) Magnesium (03/10/21 22:15) Chest 1 View, Ap/Pa Only (03/10/21 22:15) Ekg Tracing (03/10/21 22:15) Comprehensive Metabolic Panel (03/10/21 22:15) Myoglobin Serum (03/10/21 22:15) Protime With Inr (03/10/21 22:15) Partial Thromboplastin Time (03/10/21 22:15) O2 (03/10/21 22:15) Monitor-Rhythm Ecg Trace Only (03/10/21 22:15) Ed Iv/Invasive Line Start (03/10/21 22:15) Creatine Kinase (03/10/21 22:15) Creatine Kinase Mb (03/10/21 22:15) Lipase (03/10/21 22:15) Amylase (03/10/21 22:15) BNP (03/10/21 22:15) Fibrin Degradation Products (03/10/21 22:15) Troponin I (03/10/21 22:15) Nitroglycerin 0.4 Mg Btl 25's (Nitrostat (03/10/21 22:30) Aspirin Chewable Tablet (Baby Aspirin Ch (03/10/21 22:30) Nitroglycerin Ointment (Nitrobid Ointme (03/10/21 22:30) Manual Differential (03/10/21 22:25) Heparin Drip [id number] Unit/500ml (Heparin (03/10/21 23:30) Heparin (Bolus Per Protocol) (Heparin (B (03/10/21 23:21) Insulin (Regular) Human (Novolin R (Per (03/10/21 23:45) Sodium Polystyrene Sulfonate (Kayexalate (03/10/21 23:45) Ns (Ivpb) (Sodium Chloride 0.9% Ivpb Bag (03/10/21 23:33) Covid 19 Inhouse Test (03/10/21 23:49) Accucheck Stat ONCE (03/11/21 00:28) Medications Given in ED Current Medications Medications Dose Ordered Sig/Veronica Route Start Time Stop Time Status Last Admin Dose Admin Aspirin 324 mg ONCE ONCE PO 03/10/21 22:30 03/10/21 22:31 DC 03/10/21 22:34 324 MG Heparin Sodium (Porcine) HEPARIN BOLUS ACS PROTOC... [id number] ONCE IV 03/10/21 23:21 03/10/21 23:23 DC 03/10/21 23:51 5,000 UNIT Heparin Sodium/ Dextrose 500 ml @ 0 mls/hr Q0M ONCE IV 03/10/21 23:30 03/10/21 23:31 DC 03/10/21 23:53 20 MLS/HR Insulin Human Regular 15 unit ONCE ONCE IV 03/10/21 23:45 03/10/21 23:46 DC 03/10/21 23:50 15 UNIT Nitroglycerin 0.4 mg UD PRN SL 03/10/21 22:30 03/10/21 22:46 DC 03/10/21 22:46 0.4 MG Nitroglycerin 1 inch ONCE ONCE TOP 03/10/21 22:30 03/10/21 22:31 DC 03/10/21 22:41 1 INCH Sodium Polystyrene Sulfonate 15 gm ONCE ONCE PO 03/10/21 23:45 03/10/21 23:46 DC 03/10/21 23:50 15 GM Sodium Chloride 50 ml @ ud STK-MED ONCE .ROUTE 03/10/21 23:33 03/10/21 23:41 DC 03/10/21 23:54 50 MLS/HR Vital Signs/I&O 03/10/21 03/10/21 03/10/21 03/11/21 22:18 22:18 22:18 00:30 Temp 36.2 36.7 Pulse 106 100 Resp 19 12 B/P (MAP) 195/118 (143) 156/90 Pulse Ox 99 99 98 O2 Delivery Room Air Room Air Room Air Nasal Cannula O2 Flow Rate 2.00 Progress Progress Note : Progress Note GIVEN ASPIRIN AND NITROGLYCERINE SL AND NITROPASTE FOR CHEST PAIN AND ALSO FOR SIGNIFICANTLY ELEVATED BLOOD PRESSURE PAIN RELIEVED AND BP DOWN STARTED ON HEPARIN GAVE INSULIN GAVE KAYEXELATE NO DETERIORATION IN PT'S CONDITION DURING ER STAY ACCUCHECK 253 PRIOR TO TRANSFER RAPID COVID-19 TEST NEGATIVE. Initial ECG Impression Date: March 10, 2021 Initial ECG Impression Time: 22:19 Initial ECG Rate: 109 Initial ECG Rhythm: S.Tach (NON-SPECIFIC IVCD. ST DEPRESSION LATERALLY, INFERIOR Q WAVES. ) Initial ECG Comparisson: Changed (FROM 2019) Diagnostic Imaging Comments CXR--CARDIOMEGALY, NO OVERT FAILURE OR INFILTRATES, PENDING RADIOLOGIST REVIEW Reviewed: Reviewed by Me Departure Communication (Admissions) 2314--CALLED [facility] 2317--SPOKE WITH DR. VANCE. [employer], ADVISES [facility]. ACCEPTS PT FOR ADMIT. PAGING HOSPITALIST. 2227--SPOKE WITH DR. HINOJOSA, HOSPITALIST, WILL GIVE KAYEXELATE AND INSULIN. Impression Primary Impression: Chest pain Additional Impressions: Elevated troponin HTN (hypertension) Hyperglycemia Hyperkalemia ESRD on dialysis Disposition: SHT-TRM HOSP Condition: Improved Transfer Transfer Reason: Exceeds level of care Transfer Facility: [place], [place] Method of Transfer: EMS Departure-Patient Inst. Referrals: [facility] (PCP) Primary Care Physician JENNI ARZOLA (Family) Primary Care Physician GUERITA BUTLER DO March 10, 2021 22:42
[2021-03-10 22:43] LABS: CALCIUM 10.6 MG/DL (8.5-10.1); INR 1.1 (0.8-1.4); PROTHROMBIN TIME PATIENT 14.4 SEC (12.2-14.7)
[2021-03-10 22:45] LABS: TOTAL PROTEIN 8.7 GM/DL (6.4-8.2)
[2021-03-10 22:47] LABS: BILIRUBIN,TOTAL 0.4 MG/DL (0.1-1.0)
[2021-03-10 22:48] LABS: CREATININE SERUM 12.89 MG/DL (0.60-1.30)
[2021-03-10 22:51] LABS: MAGNESIUM 2.9 MG/DL (1.6-2.4)
[2021-03-10 22:59] LABS: CREATINE KINASE MB 3.7 NG/ML (<6.6)
[2021-03-10 23:12] LABS: LYMPHOCYTES % (MANUAL) 22 %; MONOCYTES % (MANUAL) 2 %; NEUTROPHILS % (MANUAL) 76 %; RBC MORPH NORMAL
[2021-03-10] MEDS ORDERED: HEParin 1000 UNIT/ML (10ML VIAL) FOR BOLUS IV ONE (23:21)
[2021-03-10] MEDS ORDERED: HEParin DRIP 25000 UNIT/500ML 500 ML IV ONE (23:30)
[2021-03-10] MEDS ORDERED: NS (IVPB) 50 ML ONE (23:33)
[2021-03-10] MEDS ORDERED: inSUlin (REGULAR) HUMAN 1 UNIT/0.01 ML (CHARGE PER UNIT) IV ONE (23:45)
[2021-03-10] MEDS ORDERED: SOD POLYSTERENE 15 GM/60 ML (KAYEXALATE) UNIT DOSE PO ONE (23:45)
[2021-03-11 00:30] VITALS: BP 156/90
--- NOTE | 2021-03-11 06:27 | Diagnostic Imaging Report ---
EXAMINATION: Chest 1 view HISTORY: Chest pain. COMPARISON: 01/09/2021. FINDINGS: A right internal jugular dialysis catheter is noted with the tip overlying the cavoatrial juncture. There is continued cardiomegaly with improved aeration throughout the lungs. Patchy opacities are seen in the bilateral lung bases. No large pleural effusion or pneumothorax. No acute osseous abnormalities. IMPRESSION: 1. Stable cardiomegaly with improved aeration throughout the lungs. Patchy opacities in the lung bases may represent atelectasis or edema. 2. Right internal jugular dialysis catheter with the tip overlying the cavoatrial juncture. Dictated by: Dictated on workstation # [id number]
== END 2021-03-11 01:10 | disposition short-term general hospital (02) ==
LOC: ER 22:15
DX: R07.9 Chest pain, unspecified (principal); R77.8 Other specified abnormalities of plasma proteins; I12.0 Hypertensive chronic kidney disease with stage 5 chronic kidney disease or end stage renal disease; N18.6 End stage renal disease; R73.9 Hyperglycemia, unspecified; E87.5 Hyperkalemia; E66.01 Morbid (severe) obesity due to excess calories; I25.10 Atherosclerotic heart disease of native coronary artery without angina pectoris; I25.2 Old myocardial infarction; Z20.822 Contact with and (suspected) exposure to COVID-19; Z68.39 Body mass index [BMI] 39.0-39.9, adult; Z99.2 Dependence on renal dialysis; Z79.899 Other long term (current) drug therapy
CPT/HCPCS: 71045; 80053; 82150; 82550; 82553; 82947; 83690; 83735; 83874; 83880; 84484; 85007; 85025; 85027; 85379; 85610; 85730; 93005; 93041; 99285; U0002; 36415; 87635